=== PATIENT | male | born 1950 | race African-American/Black ===

== ENCOUNTER 2017-01-02 23:35 | Inpatient (IN) | payer OTHER, MEDICARE ==
[~2017-01-02 23:35] MED LIST: AMLO10 PO; ASPI1TAB69 PO; ATEN50TA PO; AZIT250T3 PO; BENT20TA PO; CANA100T PO; FLUC100T2 PO; IBUP-232 PO; JANU50TA8 PO; LACTCHW3 CHEW; PIOG45TA3 PO; PROS5TAB PO; TAMS5CAP PO
[2017-01-02 23:38] VITALS: BP 209/106; PULSE 92; RESP 20; TEMP 98.5; O2SAT 95
[2017-01-03] VITALS (14 sets, daily range): BP systolic 132–161; BP diastolic 83–93; PULSE 64–118; RESP 16–25; TEMP 97–101.6; O2SAT 91–99
[2017-01-03] MEDS ORDERED: SODIUM CHLORIDE 0.9% FLUSH 5 ML FLUSH IVF PRN (00:30)
--- NOTE | 2017-01-03 00:56 | RADRPT ---
EXAM DATE/TIME: 01/03/2017 00:34 [facility] COMPARISON: CHEST SINGLE AP, September 23, 2016, 10:16. INDICATIONS : Chest pain. MEDICAL HISTORY : Myocardial infarction. Hypertension. Hypercholesterolemia. TIA. GERD. SURGICAL HISTORY : Cardiac catheterization. Cystoscope. ENCOUNTER: Initial ACUITY: 1 day PAIN SCORE: 5/10 LOCATION: Bilateral chest FINDINGS: AP vertebra. There some increased density at the base especially on the left which may be related to compressive change versus atelectasis. The heart size is borderline enlarged. CONCLUSION: Expiratory chest x-ray with suspected borderline cardiomegaly. Renzo Rivera MD on January 03, 2017 at 0:54 Board Certified Radiologist. This report was verified electronically.
[2017-01-03 01:01] LABS: AUTOMATED NEUTROPHIL # 9.3 TH/MM3 (1.8-7.7); BASOPHIL % 0.2 % (0.0-2.0); EOSINOPHIL % 0.1 % (0.0-4.0); HEMATOCRIT 44.6 % (39.0-51.0); HEMO FLAGS DIFF FINAL; LYMPH % 7.1 % (9.0-44.0); LYMPHOCYTE # 0.7 TH/MM3 (1.0-4.8); MEAN CELL VOLUME 84.6 FL (80.0-100.0); MEAN CORPUSCULAR HEMOGLOBIN 27.9 PG (27.0-34.0); MONO % 1.9 % (0.0-8.0); NEUT % 90.7 % (16.0-70.0); PLATELET COUNT 148 TH/MM3 (150-450); RED BLOOD COUNT 5.27 MIL/MM3 (4.50-5.90); RED CELL DISTRIBUTION WIDTH 13.5 % (11.6-17.2); WHITE BLOOD COUNT 10.3 TH/MM3 (4.0-11.0)
[2017-01-03] MEDS ORDERED: N7030SS SQ (01:10)
[2017-01-03 01:14] LABS: BLOOD, URINE NEG (NEG); COMMENT (UR) CULT NOT INDICATED; CULTURE IF INDICATED CULT NOT INDICATED; GLUCOSE,URINE 1000 mg/dL (NEG); KETONE, URINE NEG (NEG); NITRITE,URINE NEG (NEG); SQUAMOUS EPITHELIAL CELL URINE <1 /hpf (0-5); URINE COLOR YELLOW (YELLW/STRAW)
[2017-01-03] MEDS ORDERED: SODIUM CHLOR 0.9% 1000 ML INJ 1,000 ML IV ONE (01:15)
[2017-01-03] MEDS ORDERED: HYDROmorphone HCL PF 1 MG/ML VIAL IV PUSH ONE (01:15)
[2017-01-03] MEDS ORDERED: ONDANSETRON HCL 4 MG/2 ML VIAL IV PUSH ONE (01:15)
[2017-01-03 01:23] LABS: ALKALINE PHOSPHATASE 120 U/L (45-117); TOTAL BILIRUBIN ADULT 2.4 MG/DL (0.2-1.0)
[2017-01-03 01:27] LABS: ALT (GPT) 254 U/L (12-78); ANION GAP 8 MEQ/L (5-15); AST (GOT) 342 U/L (15-37); BICARBONATE 29.1 MEQ/L (21.0-32.0); BLOOD UREA NITROGEN 14 MG/DL (7-18); CHLORIDE 104 MEQ/L (98-107); GLOMERULAR FILTRATION RATE 61 ML/MIN (>89); POTASSIUM 4.3 MEQ/L (3.5-5.1); SODIUM (NA) 141 MEQ/L (136-145)
[2017-01-03] MEDS ORDERED: IOHEXOL 350 MG/ML 10 ML VIAL (for RAD DIAG) IV ONE (02:09)
--- NOTE | 2017-01-03 02:22 | RADRPT ---
EXAM DATE/TIME: 01/03/2017 01:51 [facility] COMPARISON: CT ABDOMEN & PELVIS W CONTRAST, July 27, 2016, 16:03. INDICATIONS : Abdominal pain and chills IV CONTRAST: 95 cc Omnipaque 350 (iohexol) IV ORAL CONTRAST: No oral contrast ingested. RADIATION DOSE: 10.02 CTDIvol (mGy) MEDICAL HISTORY : Hypertension. Diabetes mellitus type 2. SURGICAL HISTORY : None. ENCOUNTER: Initial ACUITY: 1 day PAIN SCALE: 6/10 LOCATION: Bilateral abdomen TECHNIQUE: Volumetric scanning of the abdomen and pelvis was performed. Using automated exposure control and ad justment of the mA and/or kV according to patient size, radiation dose was kept as low as reasonably achievable to obtain optimal diagnostic quality images. FINDINGS: LOWER LUNGS: There is increased parenchymal density at the posterior lower lobes bilaterally. LIVER: There is diffuse fatty infiltration of the liver. SPLEEN: Normal size without lesion. PANCREAS: Within normal limits. KIDNEYS: There is a 5 mm nonobstructing left renal stone. No hydronephrosis is seen on either side. ADRENAL GLANDS: Within normal limits. VASCULAR: There is no aortic aneurysm. BOWEL/MESENTERY: There are colonic diverticula without definite inflammatory change. ABDOMINAL WALL: Within normal limits. RETROPERITONEUM: There is no lymphadenopathy. BLADDER: There is a mass at the bladder floor likely related to an enlarged prostate. REPRODUCTIVE: The prostate is enlarged and impresses upon the bladder floor. INGUINAL: There is no lymphadenopathy or hernia. MUSCULOSKELETAL: There is degenerative change in the spine. CONCLUSION: 1. Prostatic enlargement with suspected very prominent compression on the bladder floor creating a ma sslike area in the bladder floor. 2. Fatty infiltration liver. 3. Nonobstructing left renal stone. 4. Bibasilar areas of consolidation or atelectasis at the lung bases Renzo Rivera MD on January 03, 2017 at 2:14 Board Certified Radiologist. This report was verified electronically.
--- NOTE | 2017-01-03 03:43 | PD ---
HPI Chief Complaint: Abdominal Pain Time Seen by Provider: 01:03 Travel History International Travel<30 days: No Contact w/Intl Traveler<30days: No Traveled to known affect area: No History of Present Illness HPI 66-year-old male with history of hypertension, diabetes, previous TIAs, BPH, presents to the ER today because he has had 2 days history of chills, body aches , abdominal pains which she currently rates at a 10 out of 10. He does not know any exacerbating or alleviating factors. He denies any vomiting, diarrhea , chest pains, shortness of breath, or any other symptoms. He denies any previous symptoms similar to this. Modifying Factors: None Associated Signs & Symptoms: Chills, body aches, abdominal pain Risk Factors: None PFSH Past Medical History Hx Anticoagulant Therapy: Yes (ASA) Arthritis: No Asthma: No Autoimmune Disease: No Blood Disorders: No Anxiety: No Depression: No Heart Rhythm Problems: No Cancer: No Cardiac Catheterization: Yes (02/2010) Cardiovascular Problems: Yes (HTN) High Cholesterol: Yes Chemotherapy: No Chest Pain: Yes Congestive Heart Failure: No COPD: No Cerebrovascular Accident: Yes (TIA X3) Diabetes: Yes Patient Takes Glucophage: No Diminished Hearing: No Endocrine: Yes Gastrointestinal Disorders: Yes (HEMMRHOIDS, ACID REFLEX) GERD: Yes Glaucoma: No Genitourinary: Yes (ENLARGED PROSTATE) Headaches: No Hepatitis: No Hiatal Hernia: No Hypertension: Yes Immune Disorder: No Implanted Vascular Access Dvce: No Kidney Stones: No Musculoskeletal: Yes (NECK PROBLEMS) Neurologic: Yes (HX OF 3 MINI STROKES -- 2007) Psychiatric: No Reproductive: No Respiratory: Yes Migraines: No Myocardial Infarction: Yes (02/2010) Radiation Therapy: No Renal Failure: No Seizures: No Sleep Apnea: No Thyroid Disease: No Tetanus Vaccination: > 5 Years Influenza Vaccination: Yes Past Surgical History Abdominal Surgery: No AICD: No Appendectomy: No Arteriovenous Shunt: No Cardiac Surgery: Yes (HEART CATH STENT 2013) Cholecystectomy: No Ear Surgery: No Endocrine Surgery: No Eye Surgery: No Genitourinary Surgery: Yes (cystoscope) Gynecologic Surgery: No Insulin Pump: No Joint Replacement: No Neurologic Surgery: No Oral Surgery: Yes (DENTAL SURGERY IN S) Pacemaker: No Thoracic Surgery: No Other Surgery: Yes Social History Alcohol Use: No Tobacco Use: No Substance Use: No Allergies-Medications (Allergen,Severity, Reaction): Coded Allergies: Shellfish (Verified Allergy, Severe, Anaphylaxis, 01/03/17) Reported Meds & Prescriptions Reported Meds & Active Scripts Active Reported Novolin 70/30 Inj (Insulin Human Isoph/Insulin Regular) 1,000 Units/10 Ml Inj 5 Units SQ BID Flomax (Tamsulosin HCl) 0.4 Mg Cap 0.4 Mg PO HS Pioglitazone (Pioglitazone HCl) 45 Mg Tab 45 Mg PO DAILY Janumet (Sitagliptin-Metformin) 50-1,000 Mg Tab 1 Tab PO DAILY Ibuprofen 600 Mg Tab 600 Mg PO DAILY PRN Proscar (Finasteride) 5 Mg Tab 5 Mg PO HS Do not crush. Bentyl (Dicyclomine HCl) 20 Mg Tab 20 Mg PO TID Invokana (Canagliflozin) 100 Mg Tab 100 Mg PO DAILY Take before 1st meal of day. Atenolol 50 Mg Tab 50 Mg PO DAILY Aspirin 81 Mg Tabdr 81 Mg PO DAILY Norvasc (Amlodipine Besylate) 10 Mg Tab 10 Mg PO DAILY Review of Systems Except as stated in HPI: all other systems reviewed are Neg Physical Exam Narrative GENERAL: Well-nourished, well-developed elderly -[place] male patient in moderate distress. Awake and oriented 3. SKIN: Warm and dry. HEAD: Normocephalic. EYES: No scleral icterus. No injection or drainage. NECK: Supple, trachea midline. CARDIOVASCULAR: Regular rate and rhythm without murmurs, gallops, or rubs. RESPIRATORY: Breath sounds equal bilaterally. No accessory muscle use. GASTROINTESTINAL: Abdomen soft, diffuse abdominal tenderness without guarding or rebound, nondistended. MUSCULOSKELETAL: No cyanosis, or edema. BACK: Nontender without obvious deformity. No CVA tenderness. Data Data Last Documented VS Vital Signs Date Time Temp Pulse Resp B/P Pulse Ox O2 Delivery O2 Flow Rate FiO2 01/03/17 03:51 99.0 118 18 137/90 93 Room Air 01/03/17 01:11 2 Orders Complete Blood Count With Diff (01/03/17 00:18) Comprehensive Metabolic Panel (01/03/17 00:18) Lipase (01/03/17 00:18) Urinalysis - C+S If Indicated (01/03/17 00:18) Iv Access Insert/Monitor (01/03/17 00:18) Ecg Monitoring (01/03/17 00:18) Oximetry (01/03/17 00:18) Sodium Chloride 0.9% Flush (Ns Flush) (01/03/17 00:30) Electrocardiogram (01/03/17 00:18) Chest, Single Ap (01/03/17 00:18) Blood Culture (01/03/17 01:03) Influenzae A/B Antigen (01/03/17 01:03) Ct Abd/Pel W Iv Contrast(Rout) (01/03/17 01:03) Sodium Chlor 0.9% 1000 Ml Inj (Ns 1000 M (01/03/17 01:15) Hydromorphone Pf Inj (Dilaudid Pf Inj) (01/03/17 01:15) Ondansetron Inj (Zofran Inj) (01/03/17 01:15) Iohexol 350 Inj (Omnipaque 350 Inj) (01/03/17 02:09) Us Abdomen Gallbladder (01/03/17 02:28) B-Type Natriuretic Peptide (01/03/17 04:33) Ceftriaxone Inj (Rocephin Inj) (01/03/17 04:34) Azithromycin Inj (Zithromax Inj) (01/03/17 04:34) Labs Laboratory Tests Test 01/03/17 01/03/17 00:40 00:44 Urine Color YELLOW Urine Turbidity HAZY Urine pH 7.0 Urine Specific [place] 1.020 Urine Protein TRACE mg/dL Urine Glucose (UA) 1000 mg/dL Urine Ketones NEG mg/dL Urine Occult Blood NEG Urine Nitrite NEG Urine Bilirubin NEG Urine Urobilinogen 4.0 MG/DL Urine Leukocyte Esterase NEG Urine RBC 3 /hpf Urine WBC 2 /hpf Urine Squamous Epithelial <1 /hpf Cells Microscopic Urinalysis Comment CULT NOT INDICATED White Blood Count 10.3 TH/MM3 Red Blood Count 5.27 MIL/MM3 Hemoglobin 14.7 GM/DL Hematocrit 44.6 % Mean Corpuscular Volume 84.6 FL Mean Corpuscular Hemoglobin 27.9 PG Mean Corpuscular Hemoglobin 33.0 % Concent Red Cell Distribution Width 13.5 % Platelet Count 148 TH/MM3 Mean Platelet Volume 10.1 FL Neutrophils (%) (Auto) 90.7 % Lymphocytes (%) (Auto) 7.1 % Monocytes (%) (Auto) 1.9 % Eosinophils (%) (Auto) 0.1 % Basophils (%) (Auto) 0.2 % Neutrophils # (Auto) 9.3 TH/MM3 Lymphocytes # (Auto) 0.7 TH/MM3 Monocytes # (Auto) 0.2 TH/MM3 Eosinophils # (Auto) 0.0 TH/MM3 Basophils # (Auto) 0.0 TH/MM3 CBC Comment DIFF FINAL Differential Comment Sodium Level 141 MEQ/L Potassium Level 4.3 MEQ/L Chloride Level 104 MEQ/L Carbon Dioxide Level 29.1 MEQ/L Anion Gap 8 MEQ/L Blood Urea Nitrogen 14 MG/DL Creatinine 1.42 MG/DL Estimat Glomerular Filtration 61 ML/MIN Rate Random Glucose 173 MG/DL Calcium Level 8.8 MG/DL Total Bilirubin 2.4 MG/DL Aspartate Amino Transf 342 U/L (AST/SGOT) Alanine Aminotransferase 254 U/L (ALT/SGPT) Alkaline Phosphatase 120 U/L Total Protein 8.1 GM/DL Albumin 4.0 GM/DL Lipase 129 U/L MDM Medical Decision Making Medical Screen Exam Complete: Yes Emergency Medical Condition: Yes Medical Record Reviewed: Yes Interpretation(s) EKG shows sinus tachycardia at a rate of 115 bpm with no signs of ST changes. Laboratory Tests Test 01/03/17 01/03/17 00:40 00:44 Urine Turbidity HAZY (CLEAR) Urine Glucose (UA) 1000 mg/dL (NEG) Urine Urobilinogen 4.0 MG/DL (LESS THAN 2.0) Platelet Count 148 TH/MM3 (150-450) Neutrophils (%) (Auto) 90.7 % (16.0-70.0) Lymphocytes (%) (Auto) 7.1 % (9.0-44.0) Neutrophils # (Auto) 9.3 TH/MM3 (1.8-7.7) Lymphocytes # (Auto) 0.7 TH/MM3 (1.0-4.8) Creatinine 1.42 MG/DL (0.60-1.30) Estimat Glomerular Filtration 61 ML/MIN (>89) Rate Random Glucose 173 MG/DL (74-106) Total Bilirubin 2.4 MG/DL (0.2-1.0) Aspartate Amino Transf 342 U/L (15-37) (AST/SGOT) Alanine Aminotransferase 254 U/L (12-78) (ALT/SGPT) Alkaline Phosphatase 120 U/L (45-117) Last 24 hours Impressions Gall Bladder Ultrasound 01/03/17 0228 Signed Impressions: Service Date/Time: Tuesday, January 03, 2017 02:51 - CONCLUSION: Fatty liver. Renzo Rivera MD Abdomen/Pelvis CT 01/03/17 0103 Signed Impressions: Service Date/Time: Tuesday, January 03, 2017 01:51 - CONCLUSION: 1. Prostatic enlargement with suspected very prominent compression on the bladder floor creating a masslike area in the bladder floor. 2. Fatty infiltration liver. 3. Nonobstructing left renal stone. 4. Bibasilar areas of consolidation or atelectasis at the lung bases Renzo Rivera MD Chest X-Ray 01/03/17 0018 Signed Impressions: Service Date/Time: Tuesday, January 03, 2017 00:34 - CONCLUSION: Expiratory chest x-ray with suspected borderline cardiomegaly. Rezno Rivera MD Differential Diagnosis abdominal pain, chillsgastroenteritis versus influenza versus UTI versus acute intra-abdominal processes Narrative Course Patient was given IV fluids, pain medication nausea medication in the ER. Lab work ordered shows significant liver enzyme elevations. Influenza is negative. CAT scan ordered shows no signs of acute intra-abdominal processes. CAT scan did show some basilar infiltrates questionable for underlying early pneumonia versus bronchitis. Chest x-ray did not show any signs of acute lobar pneumonia. It is uncertain why his liver enzymes are elevated. However, ultrasound and CAT scan did not reveal any signs of acute liver issues or gallbladder issues. He does have some signs of fatty liver. Patient's saturations are low and considering pulmonary findings on CAT scan, there is concern for possible underlying pneumonia. IV antibiotics were initiated in the ER. Cultures have been drawn. My plan would be to admit the patient for further treatment. Case was discussed with Dr. Barlow for admission. Sepsis Criteria SIRS Criteria (2 or more): Temp > 100.9 or < 96.8, Heart rate over 90 Sepsis Criteria (SIRS+source): Infect source susp/known Criteria Outcome: Meets sepsis criteria Diagnosis Primary Impression: Elevated liver enzymes Additional Impression: Pneumonia Admitting Information Admitting Physician Requests: Admit Condition: Stable SoonBasia torre MD Jan 03, 2017 03:43
--- NOTE | 2017-01-03 03:47 | RADRPT ---
EXAM DATE/TIME: 01/03/2017 02:51 [facility] COMPARISON: CT ABDOMEN & PELVIS W CONTRAST, January 03, 2017, 1:51. INDICATIONS : Abdominal pain. MEDICAL HISTORY : Hypertension. Diabetic. SURGICAL HISTORY : Cardiac catheterization. ENCOUNTER: Initial ACUITY: 1 day PAIN SCORE: 7/10 LOCATION: Right upper quadrant MEASUREMENTS: LIVER: 15.3 cm length COMMON DUCT: 5 mm RIGHT KIDNEY: 11.4 x 5.1 x 5.7 cm FINDINGS: LIVER: The liver demonstrates diffuse increase in echogenicity. No focal hepatic masses seen. COMMON DUCT: No intraluminal mass or stone visualized. GALLBLADDER: Contains no stones, demonstrates no wall thickening or pericholecystic fluid. PANCREAS: The visualized portions are within normal limits. RIGHT KIDNEY: No evidence of hydronephrosis, stone, or mass. CONCLUSION: Fatty liver. Renzo Rivera MD on January 03, 2017 at 3:44 Board Certified Radiologist. This report was verified electronically.
[2017-01-03] MEDS ORDERED: AZITHROMYCIN INJ 500 MG in SODIUM CHLOR 0.9% 250 ML INJ 250 ML IV STA (04:34)
[2017-01-03] MEDS ORDERED: cefTRIAXone INJ 2,000 MG in SODIUM CHLORIDE 0.9% INJ 100 ML IV STA (04:34)
[2017-01-03] MEDS ORDERED: GLUCAGON 1 MG/ML VIAL OTHER PRN (06:45)
[2017-01-03] MEDS ORDERED: DEXTROSE 50% IN WATER 50 ML VIAL(D50) IV PUSH PRN (06:45)
[2017-01-03] MEDS ORDERED: SODIUM CHLORIDE 0.9% FLUSH 5 ML FLUSH FLUSH PRN (06:45)
[2017-01-03] MEDS ORDERED: NALOXONE HCL 0.4 MG/ML AMP IV PRN (06:45)
[2017-01-03] MEDS: CIPROFLOXACIN 400 MG PREMIX 200 ML IV SCH ×2 (07:37→19:54)
[2017-01-03] MEDS: INSULIN ASPART SUPPLEMENTAL SCALE SQ SCH ×4 (07:38→20:01)
[2017-01-03] MEDS: SODIUM CHLORIDE 0.9% FLUSH 5 ML FLUSH FLUSH SCH ×2 (07:38→19:54)
[2017-01-03] MEDS ORDERED: ENOXAPARIN SODIUM 40 MG/0.4 ML SYRINGE SQ SCH (08:00)
--- NOTE | 2017-01-03 08:17 | HHI.HP ---
cc: Renzo Camilo MD [facility] Service [facility] Primary Care Physician Renzo Camilo MD Admission Diagnosis pneumonia/elevated liver enzymes Diagnoses: (1) Pneumonia (2) Sepsis (3) Elevated liver enzymes (4) HTN (hypertension) (5) DM (diabetes mellitus) Chief Complaint: abdominal pain Travel History International Travel<30 Days: No Contact w/Intl Traveler <30 Da: No Traveled to Known Affected Are: No Sepsis Criteria SIRS Criteria (2 or more): Temp > 100.9 or < 96.8, Heart rate over 90 Sepsis Criteria (SIRS+source): Infect source susp/known Criteria Outcome: Meets sepsis criteria History of Present Illness The patient is a 66-year-old male who presented to the emergency department with a 2 day history of abdominal pain, body aches, and chills. These progressively got worse yesterday. He reports subjective fever, but no chills or night sweats. Denies cough or dyspnea. Abdominal pain is in the midepigastric region. No nausea or vomiting. No diarrhea or constipation. Review of Systems Constitutional: COMPLAINS OF: Fever (subjective), DENIES: Chills, Night Sweats Eyes: DENIES: Blurred vision, Vision loss Ears, nose, mouth, throat: DENIES: Hearing loss Respiratory: DENIES: Cough, Wheezing, Sputum production, Shortness of breath Cardiovascular: DENIES: Chest pain, Palpitations, Dyspnea on Exertion, Lower Extremity Edema Gastrointestinal: COMPLAINS OF: Abdominal pain, DENIES: Constipation, Diarrhea , Nausea, Vomiting Genitourinary: DENIES: Urinary frequency, Urinary incontinence, Urgency, Hematuria, Dysuria, Nocturia Musculoskeletal: DENIES: Joint pain, Muscle aches Integumentary: DENIES: Pruritus, Rash Hematologic/lymphatic: DENIES: Bruising Neurologic: DENIES: Headache Past Family Social History Past Medical History Hypertension History of TIA 3 GERD BPH CAD with history of [place] Diabetes mellitus Past Surgical History Cardiac catheterization with coronary artery stenting Cystoscopy Dental surgery 1970s Reported Medications Novolin 70/30 Inj (Insulin Human Isoph/Insulin Regular) 1,000 Units/10 Ml Inj 5 Units SQ BID Flomax (Tamsulosin HCl) 0.4 Mg Cap 0.4 Mg PO HS Pioglitazone (Pioglitazone HCl) 45 Mg Tab 45 Mg PO DAILY Janumet (Sitagliptin-Metformin) 50-1,000 Mg Tab 1 Tab PO DAILY Ibuprofen 600 Mg Tab 600 Mg PO DAILY PRN Proscar (Finasteride) 5 Mg Tab 5 Mg PO HS Do not crush. Bentyl (Dicyclomine HCl) 20 Mg Tab 20 Mg PO TID Invokana (Canagliflozin) 100 Mg Tab 100 Mg PO DAILY Take before 1st meal of day. Atenolol 50 Mg Tab 50 Mg PO DAILY Aspirin 81 Mg Tabdr 81 Mg PO DAILY Norvasc (Amlodipine Besylate) 10 Mg Tab 10 Mg PO DAILY Allergies: Coded Allergies: Shellfish (Verified Allergy, Severe, Anaphylaxis, 01/03/17) Family History Hypertension Social History Denies alcohol, tobacco, or illicit drug use. Physical Exam Vital Signs Vital Signs Date Time Temp Pulse Resp B/P Pulse Ox O2 Delivery O2 Flow Rate FiO2 01/03/17 07:32 101 19 141/87 95 Nasal Cannula 4 01/03/17 07:20 95 Nasal Cannula 4.00 01/03/17 06:41 95 Nasal Cannula 4.00 01/03/17 05:48 99.0 105 20 137/87 95 Nasal Cannula 4 01/03/17 03:51 99.0 118 18 137/90 93 Room Air 01/03/17 01:11 101.6 118 18 158/87 93 Nasal Cannula 2 01/03/17 01:02 93 Nasal Cannula 2 01/03/17 00:19 99.9 117 25 161/91 91 Nasal Cannula 2 01/03/17 00:19 22 01/02/17 23:38 98.5 92 20 209/106 95 Physical Exam GENERAL: Well-nourished, well-developed male in no acute distress. HEENT: Normocephalic, atraumatic. Pupils equal, round and reactive. Extraocular movements intact. No scleral icterus. No injection or drainage. Oropharynx is clear. Mucous membranes are moist. CARDIOVASCULAR: Regular rate and rhythm without murmurs, gallops, or rubs. RESPIRATORY: Clear to auscultation. No wheezes, rales, or rhonchi. Breathing is non-labored. GASTROINTESTINAL: Abdomen soft, nondistended. There is diffuse tenderness to palpation without rebound or guarding. EXTREMITIES: No lower extremity edema. No calf tenderness. PSYCH: Alert and oriented x 3. Laboratory Laboratory Tests Test 01/03/17 01/03/17 01/03/17 00:40 00:44 04:54 Urine Color YELLOW Urine Turbidity HAZY Urine pH 7.0 Urine Specific [place] 1.020 Urine Protein TRACE Urine Glucose (UA) 1000 Urine Ketones NEG Urine Occult Blood NEG Urine Nitrite NEG Urine Bilirubin NEG Urine Urobilinogen 4.0 Urine Leukocyte Esterase NEG Urine RBC 3 Urine WBC 2 Urine Squamous Epithelial <1 Cells Microscopic Urinalysis Comment CULT NOT INDICATED White Blood Count 10.3 Red Blood Count 5.27 Hemoglobin 14.7 Hematocrit 44.6 Mean Corpuscular Volume 84.6 Mean Corpuscular Hemoglobin 27.9 Mean Corpuscular Hemoglobin 33.0 Concent Red Cell Distribution Width 13.5 Platelet Count 148 Mean Platelet Volume 10.1 Neutrophils (%) (Auto) 90.7 Lymphocytes (%) (Auto) 7.1 Monocytes (%) (Auto) 1.9 Eosinophils (%) (Auto) 0.1 Basophils (%) (Auto) 0.2 Neutrophils # (Auto) 9.3 Lymphocytes # (Auto) 0.7 Monocytes # (Auto) 0.2 Eosinophils # (Auto) 0.0 Basophils # (Auto) 0.0 CBC Comment DIFF FINAL Differential Comment Sodium Level 141 Potassium Level 4.3 Chloride Level 104 Carbon Dioxide Level 29.1 Anion Gap 8 Blood Urea Nitrogen 14 Creatinine 1.42 Estimat Glomerular Filtration 61 Rate Random Glucose 173 Calcium Level 8.8 Total Bilirubin 2.4 Aspartate Amino Transf 342 (AST/SGOT) Alanine Aminotransferase 254 (ALT/SGPT) Alkaline Phosphatase 120 Total Protein 8.1 Albumin 4.0 Lipase 129 B-Type Natriuretic Peptide 19 Date/Time Procedure Status Source Growth 01/03/17 01:30 Aerobic Blood Culture Received Blood Peripheral Pending 01/03/17 01:30 Anaerobic Blood Culture Received Blood Peripheral Pending 01/03/17 01:21 Influenza Types A,B Antigen ([facility]) - Final Complete Nasal Washing NEGATIVE FOR FLU A AND B ANTIGEN.... Result Diagram: 01/03/17 0044 01/03/17 0044 Imaging Last Impressions Gall Bladder Ultrasound 01/03/17 0228 Signed Impressions: Service Date/Time: Tuesday, January 03, 2017 02:51 - CONCLUSION: Fatty liver. Renzo Rivera MD Abdomen/Pelvis CT 01/03/17 0103 Signed Impressions: Service Date/Time: Tuesday, January 03, 2017 01:51 - CONCLUSION: 1. Prostatic enlargement with suspected very prominent compression on the bladder floor creating a masslike area in the bladder floor. 2. Fatty infiltration liver. 3. Nonobstructing left renal stone. 4. Bibasilar areas of consolidation or atelectasis at the lung bases Renzo Rivera MD Chest X-Ray 01/03/17 0018 Signed Impressions: Service Date/Time: Tuesday, January 03, 2017 00:34 - CONCLUSION: Expiratory chest x-ray with suspected borderline cardiomegaly. Renzo Rivera MD Assessment and Plan Assessment and Plan 1. Abdominal pain: Uncertain etiology. Continue workup. Consult GI. 2. Elevated transaminases: Patient denies alcohol use. Ultrasound shows fatty liver. Monitor labs. Consult GI. 3. Sepsis secondary to pneumonia: Patient presented with fever, tachycardia. Suspected source is pneumonia. CT showed areas of consolidation versus atelectasis in the lung bases. 4. Hypertension: Continue atenolol, amlodipine. 5. Diabetes mellitus: Monitor Accu-Cheks and cover with sliding scale insulin. Continue 70/30 insulin. Hold Janumet secondary to renal insufficiency. Continue Invokana, pioglitazone. 6. BPH: Continue Flomax, Proscar. 7. DVT prophylaxis: Heparin. Delvis Ludwig MD Jan 03, 2017 08:17
[2017-01-03] MEDS: HEPARIN SODIUM - SQ 10,000 UNITS/ML VIAL SQ SCH ×2 (08:35→19:55)
[2017-01-03 08:49] LABS: ANION GAP 8 MEQ/L (5-15); AST (GOT) 360 U/L (15-37); BICARBONATE 27.1 MEQ/L (21.0-32.0); BLOOD UREA NITROGEN 15 MG/DL (7-18); CHLORIDE 107 MEQ/L (98-107); GLOMERULAR FILTRATION RATE 53 ML/MIN (>89); POTASSIUM 3.8 MEQ/L (3.5-5.1); SODIUM (NA) 142 MEQ/L (136-145)
[2017-01-03 08:59] LABS: ALKALINE PHOSPHATASE 135 U/L (45-117); ALT (GPT) 421 U/L (12-78); TOTAL BILIRUBIN ADULT 3.1 MG/DL (0.2-1.0)
[2017-01-03] MEDS ORDERED: CANAGLIFLOZIN 100 MG PO SCH (09:00)
[2017-01-03] MEDS: ATENOLOL 50 MG TAB PO SCH (09:27)
[2017-01-03] MEDS: DICYCLOMINE HCL 20 MG TAB PO SCH ×3 (09:27→16:52)
[2017-01-03] MEDS: ASPIRIN EC 81 MG TABEC PO SCH (09:27)
[2017-01-03] MEDS: INSULIN HUMAN NPH/R 70/30 1,000 UNITS/10 ML VIAL SQ SCH ×2 (09:27→20:08)
[2017-01-03] MEDS: PIOGLITAZONE HCL 45 MG TAB PO SCH (09:28)
--- NOTE | 2017-01-03 09:43 | PD.CONS ---
HPI History of Present Illness This is a 66 year old who reports that he came to the ER for evaluation after he woke up from a nap and was "shaking real bad." He felt warm, but is unsure if he had a fever. He denies any nausea/vomiting, but he did have abdominal pain. This was in his epigastric area and radiated down his entire abdomen and to his back. He describes this as a cramping pain. It seemed to be aggravated if he would sit up and therefore he tried lying on his back and this did seem to help some, but the pain came back. He denies any diarrhea, but reports mild constipation. He denies melena or hematochezia. He denies any suspicious food , sick contacts. He reports that he was on antibiotics back in October when he had a urinary catheter removed. He reports that he had this secondary to prostate issues. He denies any history of liver disease. He denies any ETOH use. He does not eat shellfish. He was recently started on a medication for 30 days, but he does not recall what this was. He last had a colonoscopy about a year ago, but cannot recall who did this. He denies any known history of liver disease in his family. PFSH Past Medical History Hypertension History of TIA's GERD BPH CAD with history of DC Diabetes mellitus Past Surgical History Cardiac catheterization with coronary artery stenting Cystoscopy Dental surgery 1970s Colonoscopy ~ 1 year ago Coded Allergies: Shellfish (Verified Allergy, Severe, Anaphylaxis, 01/03/17) Medications Allergies Coded Allergies Type Severity Reaction Last Updated Verified Shellfish Allergy Severe Anaphylaxis 01/03/17 Yes Active Scripts Medications Dose Route/Sig Days Date Category Dose Instructions Novolin 70/30 Inj (Insulin Human Isoph/Insulin Regular) 1,000 Units/10 Ml Inj 5 Units SQ BID 01/03/17 Reported Flomax (Tamsulosin HCl) 0.4 Mg Cap 0.4 Mg PO HS 09/23/16 Reported Pioglitazone (Pioglitazone HCl) 45 Mg Tab 45 Mg PO DAILY 09/23/16 Reported Janumet (Sitagliptin-Metformin) 50-1,000 Mg Tab 1 Tab PO DAILY 09/23/16 Reported Ibuprofen 600 Mg Tab 600 Mg PO DAILY PRN 09/23/16 Reported Proscar (Finasteride) 5 Mg Tab 5 Mg PO HS 09/23/16 Reported Do not crush. Bentyl (Dicyclomine HCl) 20 Mg Tab 20 Mg PO TID 09/23/16 Reported Invokana (Canagliflozin) 100 Mg Tab 100 Mg PO DAILY 09/23/16 Reported Take before 1st meal of day. Atenolol 50 Mg Tab 50 Mg PO DAILY 09/23/16 Reported Aspirin 81 Mg Tabdr 81 Mg PO DAILY 09/23/16 Reported Norvasc (Amlodipine Besylate) 10 Mg Tab 10 Mg PO DAILY 09/23/16 Reported Family History Denies any family hx of liver disease His oldest brother is from cancer, unclear etiology Mother passed, unclear if she had some type cancer. Social History Denies alcohol, tobacco, or illicit drug use. Review of Systems Constitutional: COMPLAINS OF: Diaphoretic episodes, Fatigue, Fever (? warm, unclear if he had fever), Chills Respiratory: COMPLAINS OF: Cough Cardiovascular: DENIES: Chest pain Gastrointestinal: COMPLAINS OF: Abdominal pain, Diarrhea, DENIES: Black stools , Bloody stools, Constipation, Nausea, Vomiting, Heartburn Musculoskeletal: COMPLAINS OF: Back pain Integumentary: DENIES: Rash Neurologic: DENIES: Headache Psychiatric: DENIES: Confusion GI Exam Vitals I&O Vital Signs Date Time Temp Pulse Resp B/P Pulse Ox O2 Delivery O2 Flow Rate FiO2 01/03/17 07:32 101 19 141/87 95 Nasal Cannula 4 01/03/17 07:20 95 Nasal Cannula 4.00 01/03/17 06:41 95 Nasal Cannula 4.00 01/03/17 05:48 99.0 105 20 137/87 95 Nasal Cannula 4 01/03/17 03:51 99.0 118 18 137/90 93 Room Air 01/03/17 01:11 101.6 118 18 158/87 93 Nasal Cannula 2 01/03/17 01:02 93 Nasal Cannula 2 01/03/17 00:19 99.9 117 25 161/91 91 Nasal Cannula 2 01/03/17 00:19 22 01/02/17 23:38 98.5 92 20 209/106 95 Imaging Last Impressions Gall Bladder Ultrasound 01/03/17 0228 Signed Impressions: Service Date/Time: Tuesday, January 03, 2017 02:51 - CONCLUSION: Fatty liver. Renzo Rivera MD Abdomen/Pelvis CT 01/03/17 0103 Signed Impressions: Service Date/Time: Tuesday, January 03, 2017 01:51 - CONCLUSION: 1. Prostatic enlargement with suspected very prominent compression on the bladder floor creating a masslike area in the bladder floor. 2. Fatty infiltration liver. 3. Nonobstructing left renal stone. 4. Bibasilar areas of consolidation or atelectasis at the lung bases Renzo Rivera MD Chest X-Ray 01/03/17 0018 Signed Impressions: Service Date/Time: Tuesday, January 03, 2017 00:34 - CONCLUSION: Expiratory chest x-ray with suspected borderline cardiomegaly. Renzo Rivera MD Laboratory Test 01/03/17 01/03/17 01/03/17 01/03/17 00:40 00:44 04:54 08:18 Urine Color YELLOW Urine Turbidity HAZY Urine pH 7.0 Urine Specific [place] 1.020 Urine Protein TRACE mg/dL Urine Glucose (UA) 1000 mg/dL Urine Ketones NEG mg/dL Urine Occult Blood NEG Urine Nitrite NEG Urine Bilirubin NEG Urine Urobilinogen 4.0 MG/DL Urine Leukocyte Esterase NEG Urine RBC 3 /hpf Urine WBC 2 /hpf Urine Squamous Epithelial <1 /hpf Cells Microscopic Urinalysis Comment CULT NOT INDICATED White Blood Count 10.3 TH/MM3 Red Blood Count 5.27 MIL/MM3 Hemoglobin 14.7 GM/DL Hematocrit 44.6 % Mean Corpuscular Volume 84.6 FL Mean Corpuscular Hemoglobin 27.9 PG Mean Corpuscular Hemoglobin 33.0 % Concent Red Cell Distribution Width 13.5 % Platelet Count 148 TH/MM3 Mean Platelet Volume 10.1 FL Neutrophils (%) (Auto) 90.7 % Lymphocytes (%) (Auto) 7.1 % Monocytes (%) (Auto) 1.9 % Eosinophils (%) (Auto) 0.1 % Basophils (%) (Auto) 0.2 % Neutrophils # (Auto) 9.3 TH/MM3 Lymphocytes # (Auto) 0.7 TH/MM3 Monocytes # (Auto) 0.2 TH/MM3 Eosinophils # (Auto) 0.0 TH/MM3 Basophils # (Auto) 0.0 TH/MM3 CBC Comment DIFF FINAL Differential Comment Sodium Level 141 MEQ/L 142 MEQ/L Potassium Level 4.3 MEQ/L 3.8 MEQ/L Chloride Level 104 MEQ/L 107 MEQ/L Carbon Dioxide Level 29.1 MEQ/L 27.1 MEQ/L Anion Gap 8 MEQ/L 8 MEQ/L Blood Urea Nitrogen 14 MG/DL 15 MG/DL Creatinine 1.42 MG/DL 1.59 MG/DL Estimat Glomerular Filtration 61 ML/MIN 53 ML/MIN Rate Random Glucose 173 MG/DL 242 MG/DL Calcium Level 8.8 MG/DL 8.0 MG/DL Total Bilirubin 2.4 MG/DL 3.1 MG/DL Aspartate Amino Transf 342 U/L 360 U/L (AST/SGOT) Alanine Aminotransferase 254 U/L 421 U/L (ALT/SGPT) Alkaline Phosphatase 120 U/L 135 U/L Total Protein 8.1 GM/DL 7.1 GM/DL Albumin 4.0 GM/DL 3.2 GM/DL Lipase 129 U/L B-Type Natriuretic Peptide 19 PG/ML Lactic Acid Level 2.2 mmol/L Date/Time Procedure Status Source Growth 01/03/17 01:30 Aerobic Blood Culture Received Blood Peripheral Pending 01/03/17 01:30 Anaerobic Blood Culture Received Blood Peripheral Pending 01/03/17 01:21 Influenza Types A,B Antigen (WOLF) - Final Complete Nasal Washing NEGATIVE FOR FLU A AND B ANTIGEN.... Physical Examination HEENT: Pupils round and reactive to light; normocephalic; atraumatic; no jaundice. Throat is clear. NECK: Neck is supple, no JVD, no lymphadenopathy. CHEST: CTA CARDIAC: RRR ABDOMEN: Soft, nondistended, mild diffuse tenderness; no hepatosplenomegaly; bowel sounds are present in all four quadrants. EXTREMITIES: No clubbing, cyanosis, or edema. SKIN: Normal; no rash; no jaundice. [employer]: No focal deficits; alert and oriented times three. Assessment and Plan Plan ASSESSMENT: - Abdominal pain. Came in for chills, malaise, diffuse abdominal cramping from his epigastric area to his entire abdomen/back. Denies suspicious food, sick contacts. Unclear if he was recently on abx. Abdomen/Pelvis CT ( 01/03/17)---> 1. Prostatic enlargement with suspected very prominent compression on the bladder floor creating a masslike area in the bladder floor. 2. Fatty infiltration liver. 3. Nonobstructing left renal stone. 4. Bibasilar areas of consolidation or atelectasis at the lung bases. Gall Bladder Ultrasound (01/03/17)---> Fatty liver. WBC normal 10.3. Lipase 129. LFTs elevated with T. Bili 3.1, AST 360, ALT 421, Alk Phosph 135. These were normal in September of 2016. Of note, he does take dicyclomine at home. He last had a colonoscopy 1 year ago, cannot state who did this. Now on Cipro. - Elevated LFTs. CT/US as above, fatty liver. Lipase normal. LFTs elevated with T. Bili 3.1, AST 360, ALT 421, Alk Phosph 135. These were normal in September of 2016. Will ask lab to fractionate bilirubin and order liver workup. - SERGEI with abnormal imaging of his bladder. CT with Prostatic enlargement with suspected very prominent compression on the bladder floor creating a masslike area in the bladder floor. He has a hx of BPH with urinary retention, requiring martínez catheter, pathology negative. He reports that he had the catheter removed in October. Creat 1.42 - Questionable PNA. S/P dose of azithromycin/ceftriaxone. Now on Cipro. - HTN, DM, Hx TIA, CAD. Per primary PLAN: - DENICE - Hepatitis profile - AFP level - Ferritin, Iron saturation - Alpha 1 antitrypsin, Ceruloplasmin - MELIZA, AMA, ASMA - Will ask lab to fractionate the bilirubin. If this is more direct, then we will consider further imaging with MRCP - PPI - Dicyclomine - Avoid hepatotoxic meds - CBC, CMP in am - Further recommendations to follow after patient is seen by Fallon Black Jan 03, 2017 09:43
[2017-01-03 10:05] LABS: FERRITIN 477 NG/ML (26-388); TRANSFERRIN IRON PROFILE 196 MG/DL (200-360)
[2017-01-03 10:13] LABS: ACETAMINOPHEN LESS THAN 2.0 MCG/ML (10.0-30.0)
[2017-01-03] MEDS: PANTOPRAZOLE SODIUM 40 MG VIAL IV PUSH SCH (11:25)
[2017-01-03] MEDS: TAMSULOSIN HCL 0.4 MG CAP PO SCH (19:54)
[2017-01-03] MEDS: FINASTERIDE 5 MG TAB PO SCH (19:54)
--- NOTE | 2017-01-03 21:10 | EKG ---
Date Performed: 01/03/2017 Time Performed: 00:31:53 PTAGE: 66 years EKG: SINUS TACHYCARDIA CONSIDER INFERIOR ND- AGE UNDETERMINATE POOR R-WAVE PROGRESSION. ABNORMAL ECG PREVIOUS TRACING : 09/23/2016 10.26 DOCTOR: Arjun Cutler Interpretating Date/Time 01/03/2017 21:09:25
[2017-01-04] VITALS (8 sets, daily range): BP systolic 117–136; BP diastolic 65–86; PULSE 54–80; RESP 16–18; TEMP 97.9–99.1; O2SAT 93–97
[2017-01-04] MEDS: INSULIN ASPART SUPPLEMENTAL SCALE SQ SCH ×4 (06:12→20:50)
[2017-01-04 07:09] LABS: BASOPHIL % 0.2 % (0.0-2.0); EOSINOPHIL # 0.1 TH/MM3 (0-0.4); EOSINOPHIL % 0.9 % (0.0-4.0); HEMATOCRIT 39.8 % (39.0-51.0); HEMO FLAGS DIFF FINAL; LYMPH % 14.1 % (9.0-44.0); LYMPHOCYTE # 1.8 TH/MM3 (1.0-4.8); MEAN CELL VOLUME 85.1 FL (80.0-100.0); MEAN CORPUSCULAR HEMOGLOBIN 27.3 PG (27.0-34.0); MEAN CORPUSCULAR HGB CONC 32.1 % (32.0-36.0); MONO % 12.2 % (0.0-8.0); NEUT % 72.6 % (16.0-70.0); PLATELET COUNT 148 TH/MM3 (150-450); RED BLOOD COUNT 4.68 MIL/MM3 (4.50-5.90); RED CELL DISTRIBUTION WIDTH 13.1 % (11.6-17.2); WHITE BLOOD COUNT 12.5 TH/MM3 (4.0-11.0)
[2017-01-04 07:28] LABS: ALKALINE PHOSPHATASE 130 U/L (45-117); ALT (GPT) 337 U/L (12-78); ANION GAP 9 MEQ/L (5-15); AST (GOT) 167 U/L (15-37); BICARBONATE 24.6 MEQ/L (21.0-32.0); BLOOD UREA NITROGEN 13 MG/DL (7-18); CHLORIDE 110 MEQ/L (98-107); GLOMERULAR FILTRATION RATE 64 ML/MIN (>89); POTASSIUM 3.7 MEQ/L (3.5-5.1); SODIUM (NA) 144 MEQ/L (136-145)
[2017-01-04] MEDS: CIPROFLOXACIN 400 MG PREMIX 200 ML IV SCH (09:10)
[2017-01-04] MEDS: ASPIRIN EC 81 MG TABEC PO SCH (09:11)
[2017-01-04] MEDS: ATENOLOL 50 MG TAB PO SCH (09:11)
[2017-01-04] MEDS: DICYCLOMINE HCL 20 MG TAB PO SCH ×3 (09:11→16:37)
[2017-01-04] MEDS: INSULIN HUMAN NPH/R 70/30 1,000 UNITS/10 ML VIAL SQ SCH ×2 (09:12→20:36)
[2017-01-04] MEDS: SODIUM CHLORIDE 0.9% FLUSH 5 ML FLUSH FLUSH SCH ×2 (09:12→20:37)
[2017-01-04] MEDS: HEPARIN SODIUM - SQ 10,000 UNITS/ML VIAL SQ SCH ×2 (09:12→20:36)
[2017-01-04] MEDS: PIOGLITAZONE HCL 45 MG TAB PO SCH (09:17)
[2017-01-04] MEDS: PANTOPRAZOLE SODIUM 40 MG VIAL IV PUSH SCH (09:17)
--- NOTE | 2017-01-04 10:46 | HHI.PR ---
Subjective Remarks Sepsis, abdominal pain, bacteremia. The patient states that he feels better today. Abdominal pain has improved. No chest pain. Does report some back discomfort, which was present prior to admission. Objective Vitals Vital Signs Date Time Temp Pulse Resp B/P Pulse Ox O2 Delivery O2 Flow Rate FiO2 01/04/17 09:14 95 01/04/17 08:00 97.9 76 18 136/86 95 01/04/17 04:00 98.1 63 16 117/65 95 01/04/17 00:00 99.1 80 17 133/80 94 01/03/17 20:00 99.0 81 16 132/83 93 01/03/17 18:08 69 01/03/17 17:23 97.0 70 17 147/92 98 01/03/17 15:55 66 18 152/89 98 Nasal Cannula 2 01/03/17 13:11 64 18 147/93 99 Nasal Cannula 2 01/03/17 11:10 76 18 137/92 99 Nasal Cannula 4 I/O 01/03/17 01/03/17 01/03/17 01/04/17 01/04/17 01/04/17 07:00 15:00 23:00 07:00 15:00 23:00 Intake Total 240 ml 240 ml Output Total 800 ml 675 ml 400 ml Balance -800 ml -435 ml -160 ml Intake Oral 240 ml 240 ml Output Urine Total 800 ml 675 ml 400 ml # Voids 2 2 # Bowel Movements 0 0 Result Diagram: 01/04/17 0619 01/04/17 0619 Imaging Last Impressions Gall Bladder Ultrasound 01/03/17 0228 Signed Impressions: Service Date/Time: Tuesday, January 03, 2017 02:51 - CONCLUSION: Fatty liver. Renzo Rivera MD Abdomen/Pelvis CT 01/03/17 0103 Signed Impressions: Service Date/Time: Tuesday, January 03, 2017 01:51 - CONCLUSION: 1. Prostatic enlargement with suspected very prominent compression on the bladder floor creating a masslike area in the bladder floor. 2. Fatty infiltration liver. 3. Nonobstructing left renal stone. 4. Bibasilar areas of consolidation or atelectasis at the lung bases Renzo Rivera MD Chest X-Ray 01/03/17 0018 Signed Impressions: Service Date/Time: Tuesday, January 03, 2017 00:34 - CONCLUSION: Expiratory chest x-ray with suspected borderline cardiomegaly. Renzo Rivera MD Objective Remarks General: No acute distress. Heart: Regular rate and rhythm. No murmur. Lungs: Clear to auscultation bilaterally. No wheezes, rales, or rhonchi. Breathing is nonlabored. Abdomen: Soft, nontender, nondistended. Extremities: No lower extremity edema. Psych: Alert and oriented. Procedures None Urinary Catheter: No Vascular Central Line Catheter: No A/P Problem List: (1) Pneumonia ICD Code: J18.9 Status: Acute (2) Sepsis ICD Code: A41.9 Status: Acute (3) Elevated liver enzymes ICD Code: R74.8 Status: Acute (4) HTN (hypertension) ICD Code: I10 Status: Chronic (5) DM (diabetes mellitus) ICD Code: E11.9 Status: Chronic (6) Bacteremia ICD Code: R78.81 Status: Acute (7) Leukocytosis ICD Code: D72.829 Status: Acute Assessment and Plan 1. Abdominal pain: Uncertain etiology. Continue workup. Appreciate GI recommendations. 2. Elevated transaminases: Patient denies alcohol use. Ultrasound shows fatty liver. Monitor labs. Hepatitis panel is negative. LFTs are trending down. 3. Sepsis secondary to pneumonia: Patient presented with fever, tachycardia. Suspected source is pneumonia. CT showed areas of consolidation versus atelectasis in the lung bases. 4. Hypertension: Continue atenolol, amlodipine. 5. Diabetes mellitus: Monitor Accu-Cheks and cover with sliding scale insulin. Continue 70/30 insulin. Hold Janumet secondary to renal insufficiency. Continue Invokana, pioglitazone. 6. BPH: Continue Flomax, Proscar. 7. Bacteremia: Blood culture growing gram-negative parrish. Continue antibiotics. Consult infectious disease. 8. DVT prophylaxis: Heparin. Delvis Ludwig MD Jan 04, 2017 10:46
--- NOTE | 2017-01-04 13:50 | PD.CONS ---
History of Present Illness Service Infectious disease Consult Requested By Dr Ludwig Reason for Consult Evaluate patient with positive blood culture Primary Care Physician Renzo Camilo MD Diagnoses: History of Present Illness patient seen and examined. Records reviewed. Patient is a 66-year-old male presented to the hospital with an acute onset of abdominal pain. He was also having significant chills and had some fevers. After he had shaking chills, he started having some pain in his mid back. He denies any nausea or vomiting. Has not had any significant diarrhea. Patient states she is voiding okay. His back pain is still there but it has not gotten worse. Patient's history is significant for problem with urinary retention. He has had evaluation by urologist since last year, and actually had to hospitalization here for UTI. In August he had enterococcus in the urine culture. In September he was admitted and had Pseudomonas bacteremia. On both admissions it was felt that it was related to his tract. Patient has known enlarged prostate from previous imaging studies, which was felt to be one of the problem causing his urinary retention. Patient was being followed by the urologist, and apparently in October after follow-up, his Shankar catheter was removed. Patient states that he has been voiding without any problem. His next appointment is in February. On this admission, he has been febrile up to 101 on his first hospital day. His white count was initially 10, and went up to 12,000. His urinalysis was unremarkable. One blood culture has Klebsiella and Enterobacter. His LFTs are also abnormal. CT of the abdomen and pelvis did not show any evidence of hydronephrosis. He has the nonobstructing stone in the kidney. He also has an enlarged prostate causing some compression in the roof of the urinary bladder. Infectious disease consultation has been requested to evaluate the patient. Review of Systems Constitutional: COMPLAINS OF: Fever, Chills Eyes: DENIES: Eye pain Ears, nose, mouth, throat: DENIES: Nasal discharge, Oral lesions, Throat pain, Ear Pain, Sinus Pain, Toothache Respiratory: DENIES: Cough, Shortness of breath Cardiovascular: DENIES: Chest pain, Palpitations, Syncope Gastrointestinal: COMPLAINS OF: Abdominal pain, DENIES: Diarrhea, Nausea, Vomiting, Difficulty Swallowing Genitourinary: DENIES: Urgency, Dysuria, Penile Discharge, Testicular Swelling Musculoskeletal: DENIES: Joint pain, Muscle aches, Joint Swelling Integumentary: DENIES: Rash Hematologic/lymphatic: DENIES: Bruising Immunologic/allergic: DENIES: Urticaria Neurologic: DENIES: Headache, Localized weakness Psychiatric: DENIES: Anxiety, Hallucinations Past Family Social History Allergies: Coded Allergies: Shellfish (Verified Allergy, Severe, Anaphylaxis, 01/03/17) Past Medical History HTN DM Type 2 Urinary Obstruction and retention BPH Past Surgical History Cystoscopy Active Ordered Medications Norvasc Aspirin Tenormin Proscar Heparin Insulin Cipro Bentyl Protonix Actos Flomax Social History No Tobacco. No ETOH. No Illicit Drugs. Physical Exam Vital Signs Vital Signs Date Time Temp Pulse Resp B/P Pulse Ox O2 Delivery O2 Flow Rate FiO2 01/04/17 12:00 98.1 64 18 134/77 93 01/04/17 09:14 95 01/04/17 08:00 97.9 76 18 136/86 95 01/04/17 04:00 98.1 63 16 117/65 95 01/04/17 00:00 99.1 80 17 133/80 94 01/03/17 20:00 99.0 81 16 132/83 93 01/03/17 18:08 69 01/03/17 17:23 97.0 70 17 147/92 98 01/03/17 15:55 66 18 152/89 98 Nasal Cannula 2 Physical Exam GENERAL: This is a well-nourished, well-developed male, awake and alert, not toxic appearing, not in respiratory distress. SKIN: Warm and dry. No rash or ecchymoses HEAD: Atraumatic. Normocephalic. No temporal or scalp tenderness. EYES: [employer] conjunctivae, no petechia or hemorrhage. Pupils equal round and reactive. Extraocular motions intact.Has dirty sclera. No injection or drainage. ENT: Nose without bleeding, or purulent drainage. Moist oral mucosa. Throat without erythema, or exudate. Uvula midline. Airway patent. NECK: Trachea midline. No JVD or lymphadenopathy. Supple, nontender, no meningeal signs. CARDIOVASCULAR: Regular rate and rhythm without murmurs, gallops, or rubs. RESPIRATORY: Clear to auscultation. Breath sounds equal bilaterally. No wheezes , rales, or rhonchi. GASTROINTESTINAL: Abdomen soft, bowel sounds are present and normoactive, not distended, with mild tenderness in the epigastric region. He had some mild pressure-like sensation on palpation of the suprapubic area. No hepato- splenomegaly, or palpable masses. No guarding. No rebound MUSCULOSKELETAL: Extremities without clubbing, cyanosis, or edema. No joint tenderness, effusion, or edema noted. No calf tenderness. Negative Homans sign bilaterally. Warm and well-perfused. NEUROLOGICAL: Awake and alert. Cranial nerves II through XII intact. Motor and sensory grossly within normal limits. Five out of 5 muscle strength in all muscle groups. Normal speech. PSYCH: Normal affect, calm and cooperative LINE: PIV with no evidence of infection Laboratory Laboratory Tests Test 01/04/17 06:19 White Blood Count 12.5 Red Blood Count 4.68 Hemoglobin 12.8 Hematocrit 39.8 Mean Corpuscular Volume 85.1 Mean Corpuscular Hemoglobin 27.3 Mean Corpuscular Hemoglobin 32.1 Concent Red Cell Distribution Width 13.1 Platelet Count 148 Mean Platelet Volume 10.2 Neutrophils (%) (Auto) 72.6 Lymphocytes (%) (Auto) 14.1 Monocytes (%) (Auto) 12.2 Eosinophils (%) (Auto) 0.9 Basophils (%) (Auto) 0.2 Neutrophils # (Auto) 9.0 Lymphocytes # (Auto) 1.8 Monocytes # (Auto) 1.5 Eosinophils # (Auto) 0.1 Basophils # (Auto) 0.0 CBC Comment DIFF FINAL Differential Comment Sodium Level 144 Potassium Level 3.7 Chloride Level 110 Carbon Dioxide Level 24.6 Anion Gap 9 Blood Urea Nitrogen 13 Creatinine 1.36 Estimat Glomerular Filtration 64 Rate Random Glucose 95 Calcium Level 8.2 Total Bilirubin 5.0 Aspartate Amino Transf 167 (AST/SGOT) Alanine Aminotransferase 337 (ALT/SGPT) Alkaline Phosphatase 130 Total Protein 6.8 Albumin 3.2 Date/Time Procedure Status Source Growth 01/03/17 01:30 Aerobic Blood Culture - Preliminary Resulted Blood Peripheral NO GROWTH IN 1 DAY 01/03/17 01:30 Anaerobic Blood Culture - Preliminary Resulted Klebsiella Pneumoniae Enterobacter Species 01/03/17 01:21 Influenza Types A,B Antigen (WOLF) - Final Complete Nasal Washing NEGATIVE FOR FLU A AND B ANTIGEN.... Result Diagram: 01/04/1761801/04/1719 Imaging RADIOLOGY STUDIES/FILMS REVIEWED Gall Bladder Ultrasound 01/03/178 Signed Impressions: Service Date/Time: Tuesday, January 03, 2017 02:51 - CONCLUSION: Fatty liver. Renzo Rivera MD Abdomen/Pelvis CT 01/03/17 0103 Signed Impressions: Service Date/Time: Tuesday, January 03, 2017 01:51 - CONCLUSION: 1. Prostatic enlargement with suspected very prominent compression on the bladder floor creating a masslike area in the bladder floor. 2. Fatty infiltration liver. 3. Nonobstructing left renal stone. 4. Bibasilar areas of consolidation or atelectasis at the lung bases Renzo Rivera MD Chest X-Ray 01/03/17 0018 Signed Impressions: Service Date/Time: Tuesday, January 03, 2017 00:34 - CONCLUSION: Expiratory chest x-ray with suspected borderline cardiomegaly. Renzo iRvera MD Assessment and Plan Assessment and Plan IMPRESSION Klebsiella and Enterobacter bacteremia, source? - ?GI/biliary, ? - ?prostate - clinically no evidence of PNA, CT findings likely more of atelectasis than consolidation Previous problem with urinary retention Enlarged prostate Renal insufficiency Diabetes RECOMMENDATION Xray low thoracic upper lumbar spine to eval back pain IV Zosyn Bladder scan to eval retention Will ask urology to evaluate the markedly enlarged prostate, ?abscess Also on Cipro Follow C/S Monitor progress Repeat UA I will make further recommendations once work-up is completed I will follow along with you Thank you for this consultation Discussed Condition With Explained plan to the patient Sunita Thompson MD Jan 04, 2017 13:50
--- NOTE | 2017-01-04 13:55 | HHI.GIFU ---
Subjective Remarks Up in chair. Mild nausea last night, none today. No abdominal pain. No diarrhea. Objective Vitals I&O Vital Signs Date Time Temp Pulse Resp B/P Pulse Ox O2 Delivery O2 Flow Rate FiO2 01/04/17 12:00 98.1 64 18 134/77 93 01/04/17 09:14 95 01/04/17 08:00 97.9 76 18 136/86 95 01/04/17 04:00 98.1 63 16 117/65 95 01/04/17 00:00 99.1 80 17 133/80 94 01/03/17 20:00 99.0 81 16 132/83 93 01/03/17 18:08 69 01/03/17 17:23 97.0 70 17 147/92 98 01/03/17 15:55 66 18 152/89 98 Nasal Cannula 2 I/O 01/03/17 01/03/17 01/03/17 01/04/17 01/04/17 01/04/17 07:00 15:00 23:00 07:00 15:00 23:00 Intake Total 240 ml 240 ml 206 ml Output Total 800 ml 675 ml 400 ml Balance -800 ml -435 ml -160 ml 206 ml Intake Oral 240 ml 240 ml IV Total 206 ml Output Urine Total 800 ml 675 ml 400 ml # Voids 2 2 # Bowel Movements 0 0 Laboratory Laboratory Tests Test 01/04/17 06:19 White Blood Count 12.5 Red Blood Count 4.68 Hemoglobin 12.8 Hematocrit 39.8 Mean Corpuscular Volume 85.1 Mean Corpuscular Hemoglobin 27.3 Mean Corpuscular Hemoglobin 32.1 Concent Red Cell Distribution Width 13.1 Platelet Count 148 Mean Platelet Volume 10.2 Neutrophils (%) (Auto) 72.6 Lymphocytes (%) (Auto) 14.1 Monocytes (%) (Auto) 12.2 Eosinophils (%) (Auto) 0.9 Basophils (%) (Auto) 0.2 Neutrophils # (Auto) 9.0 Lymphocytes # (Auto) 1.8 Monocytes # (Auto) 1.5 Eosinophils # (Auto) 0.1 Basophils # (Auto) 0.0 CBC Comment DIFF FINAL Differential Comment Sodium Level 144 Potassium Level 3.7 Chloride Level 110 Carbon Dioxide Level 24.6 Anion Gap 9 Blood Urea Nitrogen 13 Creatinine 1.36 Estimat Glomerular Filtration 64 Rate Random Glucose 95 Calcium Level 8.2 Total Bilirubin 5.0 Aspartate Amino Transf 167 (AST/SGOT) Alanine Aminotransferase 337 (ALT/SGPT) Alkaline Phosphatase 130 Total Protein 6.8 Albumin 3.2 Date/Time Procedure Status Source Growth 01/03/17 01:30 Aerobic Blood Culture - Preliminary Resulted Blood Peripheral NO GROWTH IN 1 DAY 01/03/17 01:30 Anaerobic Blood Culture - Preliminary Resulted Klebsiella Pneumoniae Enterobacter Species 01/03/17 01:21 Influenza Types A,B Antigen (WOLF) - Final Complete Nasal Washing NEGATIVE FOR FLU A AND B ANTIGEN.... Imaging Last Impressions Gall Bladder Ultrasound 01/03/17227 Signed Impressions: Service Date/Time: Tuesday, January 03, 2017 02:51 - CONCLUSION: Fatty liver. Renzo Rivera MD Abdomen/Pelvis CT 01/03/17 010 Signed Impressions: Service Date/Time: Tuesday, January 03, 2017 01:51 - CONCLUSION: 1. Prostatic enlargement with suspected very prominent compression on the bladder floor creating a masslike area in the bladder floor. 2. Fatty infiltration liver. 3. Nonobstructing left renal stone. 4. Bibasilar areas of consolidation or atelectasis at the lung bases Renzo Rivera MD Chest X-Ray 01/03/17 0018 Signed Impressions: Service Date/Time: Tuesday, January 03, 2017 00:34 - CONCLUSION: Expiratory chest x-ray with suspected borderline cardiomegaly. Renzo Rivera MD Physical Exam HEENT: Normocephalic; atraumatic; no jaundice. Throat is clear. NECK: Neck is supple, no JVD, no lymphadenopathy. CHEST: CTA CARDIAC: RRR ABDOMEN: Soft, nondistended, nontender; no hepatosplenomegaly; bowel sounds are present in all four quadrants. EXTREMITIES: No clubbing, cyanosis, or edema. SKIN: Normal; no rash; no jaundice. WATER/WASTEWATER ENGINEER: No focal deficits; alert and oriented times three. Assessment and Plan Plan ASSESSMENT: - Abdominal pain. Came in for chills, malaise, diffuse abdominal cramping from his epigastric area to his entire abdomen/back. Denies suspicious food, sick contacts. Unclear if he was recently on abx. Abdomen/Pelvis CT ( 01/03/17)---> 1. Prostatic enlargement with suspected very prominent compression on the bladder floor creating a masslike area in the bladder floor. 2. Fatty infiltration liver. 3. Nonobstructing left renal stone. 4. Bibasilar areas of consolidation or atelectasis at the lung bases. Gall Bladder Ultrasound (01/03/17)---> Fatty liver. WBC normal 10.3. Lipase 129. on admission. LFTs remain elevated with T. Bili 5.0,, AST 167,, ALT 337, Alk Phosph 130. These were normal in September of 2016. He last had a colonoscopy 1 year ago, cannot state who did this. Now on Cipro. IMPROVED. - Elevated LFTs. CT/US as above, fatty liver. Lipase normal. LFTs elevated with T. Bili 5.0,, AST 167,, ALT 337, Alk Phosph 130. These were normal in September of 2016. AFP 1.7, Alpha 1 Antitrypsin 119, Ceruloplasmin pending, Hepatitis negative, MELIZA pending, AMA pending, ASMA pending, Celiac panel pending. Ferritin 477, Iron Saturation 5.1%. Bilirubin went up , transaminases improving. - SERGEI with abnormal imaging of his bladder. CT with Prostatic enlargement with suspected very prominent compression on the bladder floor creating a masslike area in the bladder floor. He has a hx of BPH with urinary retention, requiring martínez catheter, pathology negative. He reports that he had the catheter removed in October. Creat 1.36 - Questionable PNA. S/P dose of azithromycin/ceftriaxone. Cipro. - HTN, DM, Hx TIA, CAD. Per primary PLAN: - DENICE - PPI - Dicyclomine - Hepatitis profile - Await Alpha 1 antitrypsin, Ceruloplasmin - Await MELIZA, AMA, ASMA - Monitor LFTs - Avoid hepatotoxic meds - Supportive care - Further recommendations to follow based on the results of above - Pt seen and examined by Dr. García and this note is written on his behalf Fallon Hernandez Jan 04, 2017 13:55
[2017-01-04 15:05] LABS: BLOOD, URINE NEG (NEG); GLUCOSE,URINE 1000 mg/dL (NEG); KETONE, URINE 10 mg/dL (NEG); MUCUS URINE FEW /lpf (OCC); NITRITE,URINE NEG (NEG); PH, URINE 5.5 (5.0-8.5); SQUAMOUS EPITHELIAL CELL URINE 1 /hpf (0-5); TRANSITIONAL EPI CELLS, URINE <1 /hpf; URINE COLOR DARK-YELLOW (YELLW/STRAW)
[2017-01-04] MEDS: PIPERACIL-TAZO 3.375 GM PREMIX 50 ML IV SCH ×2 (15:52→20:36)
--- NOTE | 2017-01-04 17:05 | PD.CONS ---
HPI Service Urology Consult Requested By Reason for Consult Rule out prostatic abscess Primary Care Physician Renzo Camilo MD Diagnosis: (1) Pneumonia ICD Code: J18.9 (2) Sepsis ICD Code: A41.9 (3) Elevated liver enzymes ICD Code: R74.8 (4) HTN (hypertension) ICD Code: I10 (5) DM (diabetes mellitus) ICD Code: E11.9 (6) Bacteremia ICD Code: R78.81 (7) Leukocytosis ICD Code: D72.829 History of Present Illness A urology consult was placed to rule out the possibility of a prostatic abscess in this pleasant 66-year-old gentleman who was admitted with a 2 day history of generalized abdominal pain on the aches and chills. Patient has a long- standing history of BPH with associated PSA elevation and is status post a transrectal ultrasound with multiple needle biopsies of the prostate in 2013 which were negative for malignancy. Patient is being managed with finasteride 5 mg by mouth daily. A CT scan of the abdomen and pelvis was performed that demonstrated a markedly enlarged prostate with extension into the bladder base. The CT scan findings do not appear consistent with a prostatic abscess. There were no appreciable changes regarding the prostate in comparison to prior studies. Patient states that he has been voiding without any difficulty. He denies dysuria or hematuria. He denies perineal discomfort. He does admit to constipation over the past several days. A bladder scan was performed with a post void residual of approximately 150 cc. Last PSA reading was from July 2016 measuring 24.87. Urinalysis on admission was essentially negative. Review of Systems Constitutional: COMPLAINS OF: Fever, Chills Gastrointestinal: COMPLAINS OF: Abdominal pain, Nausea Genitourinary: DENIES: Urgency, Hematuria, Dysuria Except as stated in HPI: all other systems reviewed are Neg Past Family Social History Past Medical History BPH Diabetes mellitus Coronary artery disease Status post AL GERD Hypertension History of transient ischemic attacks Past Surgical History Status post cardiac stents Status post cystoscopy that confirmed obstructing BPH with median lobe enlargement Status post transrectal ultrasound with multiple needle biopsies of prostate Reported Medications Refer to EMR Allergies: Coded Allergies: Shellfish (Verified Allergy, Severe, Anaphylaxis, 01/03/17) Active Ordered Medications Refer to EMR Family History Hypertension Social History Denies tobacco, alcohol or illicit drug abuse Physical Exam Vital Signs Vital Signs Date Time Temp Pulse Resp B/P Pulse Ox O2 Delivery O2 Flow Rate FiO2 01/04/17 16:00 98.2 60 18 124/71 97 01/04/17 12:00 98.1 64 18 134/77 93 01/04/17 09:14 95 01/04/17 08:00 97.9 76 18 136/86 95 01/04/17 04:00 98.1 63 16 117/65 95 01/04/17 00:00 99.1 80 17 133/80 94 01/03/17 20:00 99.0 81 16 132/83 93 01/03/17 18:08 69 01/03/17 17:23 97.0 70 17 147/92 98 Physical Exam GENERAL: This is a well-nourished, well-developed patient, in no apparent distress. SKIN: No rashes, ecchymoses or lesions. Cool and dry. HEAD: Atraumatic. Normocephalic. No temporal or scalp tenderness. EYES: Pupils equal round and reactive. Extraocular motions intact. No scleral icterus. No injection or drainage. ENT: Nose without bleeding, purulent drainage or septal hematoma. Throat without erythema, tonsillar hypertrophy or exudate. Uvula midline. Airway patent. NECK: Trachea midline. No JVD or lymphadenopathy. Supple, nontender, no meningeal signs. GASTROINTESTINAL: Abdomen soft, non-tender, nondistended. No hepato-splenomegaly , or palpable masses. No guarding. GENITOURINARY: Normal phallus, testes descended, prostate approximate 40 g symmetrical and nontender to palpation. No areas of fluctuance. No palpable nodules. MUSCULOSKELETAL: Extremities without clubbing, cyanosis, or edema. No joint tenderness, effusion, or edema noted. No calf tenderness. Negative Homans sign bilaterally. NEUROLOGICAL: Awake and alert. Cranial nerves II through XII intact. Motor and sensory grossly within normal limits. Five out of 5 muscle strength in all muscle groups. Normal speech. Laboratory Laboratory Tests Test 01/04/17 01/04/17 06:19 14:35 White Blood Count 12.5 Red Blood Count 4.68 Hemoglobin 12.8 Hematocrit 39.8 Mean Corpuscular Volume 85.1 Mean Corpuscular Hemoglobin 27.3 Mean Corpuscular Hemoglobin 32.1 Concent Red Cell Distribution Width 13.1 Platelet Count 148 Mean Platelet Volume 10.2 Neutrophils (%) (Auto) 72.6 Lymphocytes (%) (Auto) 14.1 Monocytes (%) (Auto) 12.2 Eosinophils (%) (Auto) 0.9 Basophils (%) (Auto) 0.2 Neutrophils # (Auto) 9.0 Lymphocytes # (Auto) 1.8 Monocytes # (Auto) 1.5 Eosinophils # (Auto) 0.1 Basophils # (Auto) 0.0 CBC Comment DIFF FINAL Differential Comment Sodium Level 144 Potassium Level 3.7 Chloride Level 110 Carbon Dioxide Level 24.6 Anion Gap 9 Blood Urea Nitrogen 13 Creatinine 1.36 Estimat Glomerular Filtration 64 Rate Random Glucose 95 Calcium Level 8.2 Total Bilirubin 5.0 Aspartate Amino Transf 167 (AST/SGOT) Alanine Aminotransferase 337 (ALT/SGPT) Alkaline Phosphatase 130 Total Protein 6.8 Albumin 3.2 Urine Color DARK-YELLOW Urine Turbidity CLEAR Urine pH 5.5 Urine Specific [place] 1.035 Urine Protein TRACE Urine Glucose (UA) 1000 Urine Ketones 10 Urine Occult Blood NEG Urine Nitrite NEG Urine Bilirubin SMALL Urine Urobilinogen 4.0 Urine Leukocyte Esterase SMALL Urine RBC LESS THAN 1 Urine WBC 8 Urine WBC Clumps RARE Urine Squamous Epithelial 1 Cells Urine Transitional Epithelial <1 Cells Urine Mucus FEW Date/Time Procedure Status Source Growth 01/04/17 16:04 Aerobic Blood Culture Received Blood Peripheral Pending 01/04/17 16:04 Anaerobic Blood Culture Received Blood Peripheral Pending 01/03/17 01:30 Aerobic Blood Culture - Preliminary Resulted Blood Peripheral NO GROWTH IN 1 DAY 01/03/17 01:30 Anaerobic Blood Culture - Preliminary Resulted Klebsiella Pneumoniae Enterobacter Species 01/03/17 01:21 Influenza Types A,B Antigen (WOLF) - Final Complete Nasal Washing NEGATIVE FOR FLU A AND B ANTIGEN.... Result Diagram: 01/04/1719 01/04/[address] scan with findings as outlined above Assessment and Plan Assessment and Plan Urologic impression: Abnormal findings of the prostate on CT scan consistent with BPH with enlargement of the median lobe. Digital rectal exam not consistent with prostatitis or prostatic abscess. Recommendations: #1 patient advised to remain on the finasteride for his BPH #2 patient to keep follow up appointment with me in February as scheduled #3 no further intervention indicated at the present time. Taiwo Power MD Jan 04, 2017 17:05
[2017-01-04] MEDS: TAMSULOSIN HCL 0.4 MG CAP PO SCH (20:36)
[2017-01-04] MEDS: FINASTERIDE 5 MG TAB PO SCH (20:36)
[2017-01-04] MEDS: CIPROFLOXACIN 750 MG TAB PO SCH (20:36)
[2017-01-05] VITALS: BP 130/84; PULSE 53; RESP 16; TEMP 97.4; O2SAT 96
[2017-01-05 03:52] LABS: MITOCHONDRIAL ABS 24.9 U (())
[2017-01-05 04:00] VITALS: BP 154/85; PULSE 52; RESP 16; TEMP 98; O2SAT 95
[2017-01-05] MEDS: PIPERACIL-TAZO 3.375 GM PREMIX 50 ML IV SCH ×4 (04:01→21:30)
[2017-01-05] MEDS: INSULIN ASPART SUPPLEMENTAL SCALE SQ SCH ×4 (06:25→21:00)
[2017-01-05 06:58] LABS: AUTOMATED NEUTROPHIL # 6.5 TH/MM3 (1.8-7.7); BASOPHIL # 0.1 TH/MM3 (0-0.2); BASOPHIL % 0.6 % (0.0-2.0); EOSINOPHIL # 0.2 TH/MM3 (0-0.4); EOSINOPHIL % 1.6 % (0.0-4.0); HEMATOCRIT 38.9 % (39.0-51.0); HEMO FLAGS DIFF FINAL; LYMPH % 20.2 % (9.0-44.0); MEAN CELL VOLUME 84.9 FL (80.0-100.0); MEAN CORPUSCULAR HEMOGLOBIN 27.5 PG (27.0-34.0); MEAN CORPUSCULAR HGB CONC 32.4 % (32.0-36.0); MONO % 13.2 % (0.0-8.0); NEUT % 64.4 % (16.0-70.0); PLATELET COUNT 147 TH/MM3 (150-450); RED BLOOD COUNT 4.58 MIL/MM3 (4.50-5.90); RED CELL DISTRIBUTION WIDTH 13.3 % (11.6-17.2); WHITE BLOOD COUNT 10.1 TH/MM3 (4.0-11.0)
--- NOTE | 2017-01-05 07:53 | HHI.PR ---
Subjective Remarks Patient sleepy, says she has decreased appetite and feels tired. No fever or chills overnight. No n/v/d/c. Has productive cough. Objective Vitals Vital Signs Date Time Temp Pulse Resp B/P Pulse Ox O2 Delivery O2 Flow Rate FiO2 01/05/17 04:00 98.0 52 16 154/85 95 01/05/17 00:00 97.4 53 16 130/84 96 01/04/17 20:00 98.3 65 16 120/70 94 01/04/17 17:40 54 01/04/17 16:00 98.2 60 18 124/71 97 01/04/17 12:00 98.1 64 18 134/77 93 01/04/17 09:14 95 01/04/17 08:00 97.9 76 18 136/86 95 I/O 01/04/17 01/04/17 01/04/17 01/05/17 01/05/17 01/05/17 07:00 15:00 23:00 07:00 15:00 23:00 Intake Total 240 ml 206 ml 840 ml 240 ml Output Total 400 ml 900 ml 300 ml Balance -160 ml 206 ml -60 ml -60 ml Intake Oral 240 ml 840 ml 240 ml IV Total 206 ml Output Urine Total 400 ml 900 ml 300 ml # Voids 1 # Bowel Movements 0 0 0 Result Diagram: 01/05/1762201/04/1719 Imaging Last Impressions Gall Bladder Ultrasound 01/03/178 Signed Impressions: Service Date/Time: Tuesday, January 03, 2017 02:51 - CONCLUSION: Fatty liver. Renzo Rivera MD Abdomen/Pelvis CT 01/03/17 0103 Signed Impressions: Service Date/Time: Tuesday, January 03, 2017 01:51 - CONCLUSION: 1. Prostatic enlargement with suspected very prominent compression on the bladder floor creating a masslike area in the bladder floor. 2. Fatty infiltration liver. 3. Nonobstructing left renal stone. 4. Bibasilar areas of consolidation or atelectasis at the lung bases Renzo Rivera MD Chest X-Ray 01/03/17 0018 Signed Impressions: Service Date/Time: Tuesday, January 03, 2017 00:34 - CONCLUSION: Expiratory chest x-ray with suspected borderline cardiomegaly. Renzo Rivera MD Objective Remarks GENERAL: 66 yo male, well nourished, well developed patient, in not acute distress. SKIN: Warm and dry. HEAD: Atraumatic. Normocephalic. EYES: Pupils equal and round. No scleral icterus. No injection or drainage. ENT: No nasal bleeding or discharge. Mucous membranes pink and moist. NECK: Trachea midline. No JVD. CARDIOVASCULAR: Regular rate and rhythm. RESPIRATORY: No accessory muscle use. Clear to auscultation. Breath sounds equal bilaterally. GASTROINTESTINAL: Abdomen soft, non-tender, nondistended. Hepatic and splenic margins not palpable. MUSCULOSKELETAL: Extremities without clubbing, cyanosis, or edema. No obvious deformities. NEUROLOGICAL: Awake and alert. No obvious cranial nerve deficits. Motor grossly within normal limits. Five out of 5 muscle strength in the arms and legs. Normal speech. PSYCHIATRIC: Appropriate mood and affect; insight and judgment normal. Procedures None A/P Problem List: (1) Pneumonia ICD Code: J18.9 Status: Acute (2) Sepsis ICD Code: A41.9 Status: Acute (3) Elevated liver enzymes ICD Code: R74.8 Status: Acute (4) HTN (hypertension) ICD Code: I10 Status: Chronic (5) DM (diabetes mellitus) ICD Code: E11.9 Status: Chronic (6) Bacteremia ICD Code: R78.81 Status: Acute (7) Leukocytosis ICD Code: D72.829 Status: Acute Assessment and Plan Abdominal pain: Uncertain etiology. Continue workup. Appreciate GI recommendations. Elevated transaminases: Patient denies alcohol use. Ultrasound shows fatty liver. Monitor labs. Hepatitis panel is negative. LFTs are trending down. Poss acute 2/2 sepsis. Sepsis secondary to pneumonia/also bacteremia: Patient with fever, tachycardia on admission. Suspected source is pneumonia. CT showed areas of consolidation versus atelectasis in the lung bases. Bacteremia: Blood culture growing GNR Klebsiella pneumoniae and Enterobacter species. Repeat Blood cultures 01/04/17 NTD. Monitor unril neg Blood cx. Continue antibiotics. Infectious disease specialist consulted and following. Hypertension: Fairly controlled Continue atenolol, amlodipine. Monitor VS and adjust meds if need. Vasotec IV prn if high BP SERGEI. Continue IVF. Monitor Kidney indices. Avoid nephrotoxics. UA neg. Pt also has BPH. Diabetes mellitus type 2, controlled A1c 5.3 07/29. Monitor Accu-Cheks and cover with sliding scale insulin. Continue 70/30 insulin. Hold Janumet secondary to renal insufficiency. Continue Invokana, pioglitazone. BPH: Continue Flomax, Proscar. Follow up with Dr Power as OP. Has an appointment in February. DVT prophylaxis: Heparin. Discussed with patient, nurse Anastasiya Sellers MD Jan 05, 2017 07:52
[2017-01-05] MEDS: PANTOPRAZOLE SODIUM 40 MG VIAL IV PUSH SCH (07:55)
[2017-01-05] MEDS: SODIUM CHLORIDE 0.9% FLUSH 5 ML FLUSH FLUSH SCH ×2 (07:55→21:31)
[2017-01-05] MEDS: INSULIN HUMAN NPH/R 70/30 1,000 UNITS/10 ML VIAL SQ SCH ×2 (07:56→21:30)
[2017-01-05] MEDS: PIOGLITAZONE HCL 45 MG TAB PO SCH (07:56)
[2017-01-05] MEDS: ATENOLOL 50 MG TAB PO SCH (07:56)
[2017-01-05] MEDS: DICYCLOMINE HCL 20 MG TAB PO SCH ×3 (07:56→15:35)
[2017-01-05] MEDS: ASPIRIN EC 81 MG TABEC PO SCH (07:56)
[2017-01-05] MEDS: CIPROFLOXACIN 750 MG TAB PO SCH ×2 (07:56→21:30)
[2017-01-05] MEDS: HEPARIN SODIUM - SQ 10,000 UNITS/ML VIAL SQ SCH ×2 (07:58→21:31)
[2017-01-05 08:04] LABS: ALKALINE PHOSPHATASE 127 U/L (45-117); ALT (GPT) 262 U/L (12-78); ANION GAP 6 MEQ/L (5-15); AST (GOT) 85 U/L (15-37); BICARBONATE 25.5 MEQ/L (21.0-32.0); BLOOD UREA NITROGEN 15 MG/DL (7-18); CHLORIDE 109 MEQ/L (98-107); GLOMERULAR FILTRATION RATE 70 ML/MIN (>89); POTASSIUM 3.9 MEQ/L (3.5-5.1); SODIUM (NA) 140 MEQ/L (136-145); TOTAL BILIRUBIN ADULT 1.3 MG/DL (0.2-1.0)
[2017-01-05 08:10] VITALS: BP 135/72; PULSE 59; RESP 18; TEMP 98.1; O2SAT 97
[2017-01-05 08:53] VITALS: PULSE 53
[2017-01-05 12:10] VITALS: BP 143/86; PULSE 52; RESP 16; TEMP 97.6; O2SAT 99
--- NOTE | 2017-01-05 12:14 | HHI.GIFU ---
Subjective Remarks Pt OOB to bathroom. Reports one loose BM last night. Good appetite. Objective Vitals I&O Vital Signs Date Time Temp Pulse Resp B/P Pulse Ox O2 Delivery O2 Flow Rate FiO2 01/05/17 08:53 53 01/05/17 08:10 98.1 59 18 135/72 97 01/05/17 04:00 98.0 52 16 154/85 95 01/05/17 00:00 97.4 53 16 130/84 96 01/04/17 20:00 98.3 65 16 120/70 94 01/04/17 17:40 54 01/04/17 16:00 98.2 60 18 124/71 97 I/O 01/04/17 01/04/17 01/04/17 01/05/17 01/05/17 01/05/17 07:00 15:00 23:00 07:00 15:00 23:00 Intake Total 240 ml 206 ml 840 ml 240 ml Output Total 400 ml 900 ml 300 ml Balance -160 ml 206 ml -60 ml -60 ml Intake Oral 240 ml 840 ml 240 ml IV Total 206 ml Output Urine Total 400 ml 900 ml 300 ml # Voids 1 # Bowel Movements 0 0 0 Laboratory Laboratory Tests Test 01/04/17 01/05/17 01/05/17 14:35 06:23 10:43 Urine Color DARK-YELLOW Urine Turbidity CLEAR Urine pH 5.5 Urine Specific [place] 1.035 Urine Protein TRACE Urine Glucose (UA) 1000 Urine Ketones 10 Urine Occult Blood NEG Urine Nitrite NEG Urine Bilirubin SMALL Urine Urobilinogen 4.0 Urine Leukocyte Esterase SMALL Urine RBC LESS THAN 1 Urine WBC 8 Urine WBC Clumps RARE Urine Squamous Epithelial 1 Cells Urine Transitional Epithelial <1 Cells Urine Mucus FEW White Blood Count 10.1 Red Blood Count 4.58 Hemoglobin 12.6 Hematocrit 38.9 Mean Corpuscular Volume 84.9 Mean Corpuscular Hemoglobin 27.5 Mean Corpuscular Hemoglobin 32.4 Concent Red Cell Distribution Width 13.3 Platelet Count 147 Mean Platelet Volume 10.1 Neutrophils (%) (Auto) 64.4 Lymphocytes (%) (Auto) 20.2 Monocytes (%) (Auto) 13.2 Eosinophils (%) (Auto) 1.6 Basophils (%) (Auto) 0.6 Neutrophils # (Auto) 6.5 Lymphocytes # (Auto) 2.0 Monocytes # (Auto) 1.3 Eosinophils # (Auto) 0.2 Basophils # (Auto) 0.1 CBC Comment DIFF FINAL Differential Comment Sodium Level 140 Potassium Level 3.9 Chloride Level 109 Carbon Dioxide Level 25.5 Anion Gap 6 Blood Urea Nitrogen 15 Creatinine 1.26 Estimat Glomerular Filtration 70 Rate Random Glucose 129 Calcium Level 8.6 Total Bilirubin 1.3 Aspartate Amino Transf 85 (AST/SGOT) Alanine Aminotransferase 262 (ALT/SGPT) Alkaline Phosphatase 127 Total Protein 6.9 Albumin 3.1 Lactic Acid Level 0.8 Date/Time Procedure Status Source Growth 01/04/17 16:04 Aerobic Blood Culture - Preliminary Resulted Blood Peripheral NO GROWTH IN 1 DAY 01/04/17 16:04 Anaerobic Blood Culture - Final Resulted Blood Peripheral QNS - SEE AEROBE REPORT 01/03/17 01:21 Influenza Types A,B Antigen (WOLF) - Final Complete Nasal Washing NEGATIVE FOR FLU A AND B ANTIGEN.... Imaging Last Impressions Gall Bladder Ultrasound 01/03/17227 Signed Impressions: Service Date/Time: Tuesday, January 03, 2017 02:51 - CONCLUSION: Fatty liver. Renzo Rivera MD Abdomen/Pelvis CT 01/03/173 Signed Impressions: Service Date/Time: Tuesday, January 03, 2017 01:51 - CONCLUSION: 1. Prostatic enlargement with suspected very prominent compression on the bladder floor creating a masslike area in the bladder floor. 2. Fatty infiltration liver. 3. Nonobstructing left renal stone. 4. Bibasilar areas of consolidation or atelectasis at the lung bases Renzo Rivera MD Chest X-Ray 01/03/17 0018 Signed Impressions: Service Date/Time: Tuesday, January 03, 2017 00:34 - CONCLUSION: Expiratory chest x-ray with suspected borderline cardiomegaly. Renzo Rivera MD Physical Exam HEENT: Normocephalic; atraumatic; no jaundice. CHEST: CTA CARDIAC: RRR ABDOMEN: Soft, nondistended, nontender; no hepatosplenomegaly; bowel sounds are present in all four quadrants. EXTREMITIES: No clubbing, cyanosis, or edema. SKIN: Normal; no rash; no jaundice. LEATHER GOODS MAKER: No focal deficits; alert and oriented times three. Assessment and Plan Plan ASSESSMENT: - Abdominal pain improving. Came in for chills, malaise, diffuse abdominal cramping from his epigastric area to his entire abdomen/back. Denies suspicious food, sick contacts. Unclear if he was recently on abx. Abdomen/Pelvis CT ( 01/03/17)---> 1. Prostatic enlargement with suspected very prominent compression on the bladder floor creating a masslike area in the bladder floor. 2. Fatty infiltration liver. 3. Nonobstructing left renal stone. 4. Bibasilar areas of consolidation or atelectasis at the lung bases. Gall Bladder Ultrasound (01/03/17)---> Fatty liver. WBC normal 10.1. Lipase 129. on admission. LFTs trending down with T. Bili 1.3,, AST 85,, ALT 262, Alk Phosph 127. These were normal in September of 2016. He last had a colonoscopy 1 year ago, cannot state who did this. Now on Cipro. IMPROVED. - Elevated LFTs. CT/US as above, fatty liver. Lipase normal. LFTs trending down with T. Bili 1.3,, AST 85,, ALT 262, Alk Phosph 127. These were normal in September of 2016. AFP 1.7, Alpha 1 Antitrypsin 119, Ceruloplasmin pending, Hepatitis negative, MELIZA neg, AMA nonspecifically elevated 24.9, ASMA neg, alpha 1 antitrypsin normal Celiac panel neg. Ferritin 477, Iron Saturation 5.1%. - SERGEI with abnormal imaging of his bladder. CT with Prostatic enlargement with suspected very prominent compression on the bladder floor creating a masslike area in the bladder floor. He has a hx of BPH with urinary retention, requiring martínez catheter, pathology negative. He reports that he had the catheter removed in October. Creat 1.26 - Questionable PNA. S/P dose of azithromycin/ceftriaxone. Cipro. - HTN, DM, Hx TIA, CAD. Per primary PLAN: - DENICE - PPI - Dicyclomine - Await Ceruloplasmin - Monitor LFTs - Avoid hepatotoxic meds - Supportive care - If LFTs remain persistently elevated or worsen, consider liver biopsy - Further recommendations to follow based on the results of above - Pt seen and examined by Dr. García and this note is written on his behalf Fallon Hernandez Jan 05, 2017 12:14
--- NOTE | 2017-01-05 13:21 | HHI.IDPN ---
Subjective Subjective Remarks Notes reviewed No fever Urology notes appreciated No new (+) BC LFTs improving NO new complaints Repeat UA now with pyuria Antibiotics Zosyn Cipro Lines PIV Past Medical History HTN DM Type 2 Urinary Obstruction and retention BPH Past Surgical History Cystoscopy Allergies: Coded Allergies: Shellfish (Verified Allergy, Severe, Anaphylaxis, 01/03/17) Objective . Vital Signs Date Time Temp Pulse Resp B/P Pulse Ox O2 Delivery O2 Flow Rate FiO2 01/05/17 08:53 53 01/05/17 08:10 98.1 59 18 135/72 97 01/05/17 04:00 98.0 52 16 154/85 95 01/05/17 00:00 97.4 53 16 130/84 96 01/04/17 20:00 98.3 65 16 120/70 94 01/04/17 17:40 54 01/04/17 16:00 98.2 60 18 124/71 97 01/04/17 01/04/17 01/05/17 15:00 23:00 07:00 Intake Total 206 ml 840 ml 240 ml Output Total 900 ml 300 ml Balance 206 ml -60 ml -60 ml Intake Oral 840 ml 240 ml IV Total 206 ml Output Urine Total 900 ml 300 ml # Voids 1 # Bowel Movements 0 0 . Laboratory Tests Test 01/04/17 01/05/17 06:19 06:23 White Blood Count 12.5 TH/MM3 10.1 TH/MM3 Red Blood Count 4.68 MIL/MM3 4.58 MIL/MM3 Hemoglobin 12.8 GM/DL 12.6 GM/DL Hematocrit 39.8 % 38.9 % Mean Corpuscular Volume 85.1 FL 84.9 FL Mean Corpuscular Hemoglobin 27.3 PG 27.5 PG Mean Corpuscular Hemoglobin 32.1 % 32.4 % Concent Red Cell Distribution Width 13.1 % 13.3 % Platelet Count 148 TH/MM3 147 TH/MM3 Mean Platelet Volume 10.2 FL 10.1 FL Neutrophils (%) (Auto) 72.6 % 64.4 % Lymphocytes (%) (Auto) 14.1 % 20.2 % Monocytes (%) (Auto) 12.2 % 13.2 % Eosinophils (%) (Auto) 0.9 % 1.6 % Basophils (%) (Auto) 0.2 % 0.6 % Neutrophils # (Auto) 9.0 TH/MM3 6.5 TH/MM3 Lymphocytes # (Auto) 1.8 TH/MM3 2.0 TH/MM3 Monocytes # (Auto) 1.5 TH/MM3 1.3 TH/MM3 Eosinophils # (Auto) 0.1 TH/MM3 0.2 TH/MM3 Basophils # (Auto) 0.0 TH/MM3 0.1 TH/MM3 CBC Comment DIFF FINAL DIFF FINAL Differential Comment Laboratory Tests Test 01/04/17 01/05/17 01/05/17 06:19 06:23 10:43 Sodium Level 144 MEQ/L 140 MEQ/L Potassium Level 3.7 MEQ/L 3.9 MEQ/L Chloride Level 110 MEQ/L 109 MEQ/L Carbon Dioxide Level 24.6 MEQ/L 25.5 MEQ/L Anion Gap 9 MEQ/L 6 MEQ/L Blood Urea Nitrogen 13 MG/DL 15 MG/DL Creatinine 1.36 MG/DL 1.26 MG/DL Estimat Glomerular Filtration 64 ML/MIN 70 ML/MIN Rate Random Glucose 95 MG/DL 129 MG/DL Calcium Level 8.2 MG/DL 8.6 MG/DL Total Bilirubin 5.0 MG/DL 1.3 MG/DL Aspartate Amino Transf 167 U/L 85 U/L (AST/SGOT) Alanine Aminotransferase 337 U/L 262 U/L (ALT/SGPT) Alkaline Phosphatase 130 U/L 127 U/L Total Protein 6.8 GM/DL 6.9 GM/DL Albumin 3.2 GM/DL 3.1 GM/DL Lactic Acid Level 0.8 mmol/L Microbiology Date/Time Procedure Status Source Growth 01/03/17 01:20 Aerobic Blood Culture - Preliminary Resulted Blood Peripheral NO GROWTH IN 2 DAYS 01/03/17 01:20 Anaerobic Blood Culture - Preliminary Resulted Blood Peripheral NO GROWTH IN 2 DAYS 01/03/17 01:21 Influenza Types A,B Antigen (WOLF) - Final Complete Nasal Washing NEGATIVE FOR FLU A AND B ANTIGEN.... 01/03/17 01:30 Aerobic Blood Culture - Preliminary Resulted Blood Peripheral NO GROWTH IN 2 DAYS 01/03/17 01:30 Anaerobic Blood Culture - Preliminary Resulted Klebsiella Pneumoniae Enterobacter Species 01/04/17 16:04 Aerobic Blood Culture - Preliminary Resulted Blood Peripheral NO GROWTH IN 1 DAY 01/04/17 16:04 Anaerobic Blood Culture - Final Resulted Blood Peripheral QNS - SEE AEROBE REPORT 01/04/17 16:04 Aerobic Blood Culture - Preliminary Resulted Blood Peripheral NO GROWTH IN 1 DAY 01/04/17 16:04 Anaerobic Blood Culture - Final Resulted Blood Peripheral QNS - SEE AEROBE REPORT Imaging Gall Bladder Ultrasound 01/03/17 0228 Signed Impressions: Service Date/Time: Tuesday, January 03, 2017 02:51 - CONCLUSION: Fatty liver. Renzo Rivera MD Abdomen/Pelvis CT 01/03/17 0103 Signed Impressions: Service Date/Time: Tuesday, January 03, 2017 01:51 - CONCLUSION: 1. Prostatic enlargement with suspected very prominent compression on the bladder floor creating a masslike area in the bladder floor. 2. Fatty infiltration liver. 3. Nonobstructing left renal stone. 4. Bibasilar areas of consolidation or atelectasis at the lung bases Renzo Rivera MD Chest X-Ray 01/03/17 0018 Signed Impressions: Service Date/Time: Tuesday, January 03, 2017 00:34 - CONCLUSION: Expiratory chest x-ray with suspected borderline cardiomegaly. Renzo Rivera MD Physical Exam GENERAL: awake and alert, not in respiratory distress. SKIN: Warm and dry. No rash or ecchymoses HEENT: [place] conjunctivae, no petechia or hemorrhage. Has dirty sclera. Moist oral mucosa. NECK: Supple, nontender, no meningeal signs. CARDIOVASCULAR: Regular rate and rhythm without murmurs, gallops, or rubs. RESPIRATORY: Clear to auscultation. Breath sounds equal bilaterally. No wheezes , rales, or rhonchi. GASTROINTESTINAL: Abdomen soft, bowel sounds are present and normoactive, not distended, with mild tenderness in the epigastric region. No guarding. No rebound MUSCULOSKELETAL: Extremities without clubbing, cyanosis, or edema. No calf tenderness. Warm and well-perfused. NEUROLOGICAL: Non-focal PSYCH: Normal affect, calm and cooperative LINE: PIV with no evidence of infection Assessment & Plan Remarks IMPRESSION Klebsiella and Enterobacter bacteremia, source? - ?GI/biliary, ? - ?prostate - clinically no evidence of PNA, CT findings likely more of atelectasis than consolidation - ?intermittent incomplete emptying Had previous PSAE bacteremia Previous problem with urinary retention Enlarged prostate Renal insufficiency Diabetes RECOMMENDATION Continue IV Zosyn Also on Cipro Follow C/S Monitor progress Will get WBC scan to see if any other occult source of infection Sunita Thompson MD Jan 05, 2017 13:21
[2017-01-05 20:30] VITALS: BP 147/92; PULSE 54; RESP 16; TEMP 97.6; O2SAT 93
[2017-01-05] MEDS: FINASTERIDE 5 MG TAB PO SCH (21:30)
[2017-01-05] MEDS: TAMSULOSIN HCL 0.4 MG CAP PO SCH (21:30)
[2017-01-06] VITALS (9 sets, daily range): BP systolic 128–137; BP diastolic 74–87; PULSE 52–60; RESP 16; TEMP 97.1–98.4; O2SAT 95–98
[2017-01-06] MEDS: PIPERACIL-TAZO 3.375 GM PREMIX 50 ML IV SCH ×4 (03:56→22:46)
[2017-01-06] MEDS: INSULIN ASPART SUPPLEMENTAL SCALE SQ SCH ×4 (06:22→21:00)
[2017-01-06] MEDS: CIPROFLOXACIN 750 MG TAB PO SCH ×2 (08:52→22:16)
[2017-01-06] MEDS: PIOGLITAZONE HCL 45 MG TAB PO SCH (08:52)
[2017-01-06] MEDS: ASPIRIN EC 81 MG TABEC PO SCH (08:52)
[2017-01-06] MEDS: SODIUM CHLORIDE 0.9% FLUSH 5 ML FLUSH FLUSH SCH ×2 (08:53→22:16)
[2017-01-06] MEDS: ATENOLOL 50 MG TAB PO SCH (08:53)
[2017-01-06] MEDS: PANTOPRAZOLE SODIUM 40 MG VIAL IV PUSH SCH (08:54)
[2017-01-06] MEDS: INSULIN HUMAN NPH/R 70/30 1,000 UNITS/10 ML VIAL SQ SCH ×2 (08:56→22:15)
[2017-01-06] MEDS: HEPARIN SODIUM - SQ 10,000 UNITS/ML VIAL SQ SCH ×2 (08:59→22:15)
[2017-01-06] MEDS: DICYCLOMINE HCL 20 MG TAB PO SCH ×3 (09:00→15:59)
--- NOTE | 2017-01-06 12:23 | HHI.GIFU ---
Subjective Remarks Pt eating lunch. No abd pain, n/v, diarrhea. Objective Vitals I&O Vital Signs Date Time Temp Pulse Resp B/P Pulse Ox O2 Delivery O2 Flow Rate FiO2 01/06/17 08:02 97.1 56 16 137/87 98 01/06/17 04:00 97.4 56 16 130/81 95 01/06/17 00:00 97.5 54 16 128/74 96 01/05/17 20:30 97.6 54 16 147/92 93 I/O 01/05/17 01/05/17 01/05/17 01/06/17 01/06/17 01/06/17 07:00 15:00 23:00 07:00 15:00 23:00 Intake Total 240 ml 980 ml 960 ml 240 ml Output Total 300 ml Balance -60 ml 980 ml 960 ml 240 ml Intake Oral 240 ml 980 ml 960 ml 240 ml Output Urine Total 300 ml # Voids 4 5 1 # Bowel Movements 0 1 0 Laboratory Date/Time Procedure Status Source Growth 01/04/17 16:04 Aerobic Blood Culture - Preliminary Resulted Blood Peripheral NO GROWTH IN 2 DAYS 01/04/17 16:04 Anaerobic Blood Culture - Final Resulted Blood Peripheral QNS - SEE AEROBE REPORT 01/03/17 01:21 Influenza Types A,B Antigen (WOLF) - Final Complete Nasal Washing NEGATIVE FOR FLU A AND B ANTIGEN.... Imaging Last Impressions Gall Bladder Ultrasound 01/03/17227 Signed Impressions: Service Date/Time: Tuesday, January 03, 2017 02:51 - CONCLUSION: Fatty liver. Renzo Rivera MD Abdomen/Pelvis CT 01/03/17 0103 Signed Impressions: Service Date/Time: Tuesday, January 03, 2017 01:51 - CONCLUSION: 1. Prostatic enlargement with suspected very prominent compression on the bladder floor creating a masslike area in the bladder floor. 2. Fatty infiltration liver. 3. Nonobstructing left renal stone. 4. Bibasilar areas of consolidation or atelectasis at the lung bases Renzo Rivera MD Chest X-Ray 01/03/17 0018 Signed Impressions: Service Date/Time: Tuesday, January 03, 2017 00:34 - CONCLUSION: Expiratory chest x-ray with suspected borderline cardiomegaly. Renzo Rivera MD Physical Exam HEENT: Normocephalic; atraumatic; no jaundice. CHEST: CTA CARDIAC: RRR ABDOMEN: Soft, nondistended, nontender; no hepatosplenomegaly; bowel sounds are present in all four quadrants. EXTREMITIES: No clubbing, cyanosis, or edema. SKIN: Normal; no rash; no jaundice. RADAR OPERATOR: No focal deficits; alert and oriented times three. Assessment and Plan Plan ASSESSMENT: - Abdominal pain improving. Came in for chills, malaise, diffuse abdominal cramping from his epigastric area to his entire abdomen/back. Denies suspicious food, sick contacts. Unclear if he was recently on abx. Abdomen/Pelvis CT ( 01/03/17)---> 1. Prostatic enlargement with suspected very prominent compression on the bladder floor creating a masslike area in the bladder floor. 2. Fatty infiltration liver. 3. Nonobstructing left renal stone. 4. Bibasilar areas of consolidation or atelectasis at the lung bases. Gall Bladder Ultrasound (01/03/17)---> Fatty liver. WBC normal 10.1. Lipase 129. on admission. LFTs trending down with T. Bili 1.3,, AST 85,, ALT 262, Alk Phosph 127. These were normal in September of 2016. He last had a colonoscopy 1 year ago, cannot state who did this. Now on Cipro. IMPROVED. PPI - Elevated LFTs. CT/US as above, fatty liver. Lipase normal. LFTs trending down with T. Bili 1.3,, AST 85,, ALT 262, Alk Phosph 127. These were normal in September of 2016. AFP 1.7, Alpha 1 Antitrypsin 119, Ceruloplasmin 24 WNL, Hepatitis negative, MELIZA neg, AMA nonspecifically elevated 24.9, ASMA neg, alpha 1 antitrypsin normal Celiac panel neg. Ferritin 477, Iron Saturation 5.1%. - SERGEI with abnormal imaging of his bladder. CT with Prostatic enlargement with suspected very prominent compression on the bladder floor creating a masslike area in the bladder floor. He has a hx of BPH with urinary retention, requiring mratínez catheter, pathology negative. He reports that he had the catheter removed in October. Creat 1.26 - Questionable PNA. S/P dose of azithromycin/ceftriaxone. Cipro,zosyn. - HTN, DM, Hx TIA, CAD. Per primary PLAN: - DENICE - PO PPI QD - Dicyclomine - LFTs in am - Avoid hepatotoxic meds - Supportive care - If LFTs remain persistently elevated or worsen, consider liver biopsy - Further recommendations to follow based on the results of above - Pt seen and examined by Dr. García and this note is written on his behalf Fallon Hernandez Jan 06, 2017 12:23
--- NOTE | 2017-01-06 13:23 | RADRPT ---
EXAM DATE/TIME: 01/05/2017 15:59 [facility] COMPARISON: CT ABDOMEN & PELVIS W CONTRAST, January 03, 2017, 1:51. INDICATIONS : GERD, HLD, DM, ID DOSE: 21.7 mCi Tc99m Ceretec labeled white blood cells IV PLANAR IMAGIN min, 3 hrs, 20 hrs MEDICAL HISTORY : Myocardial infarction. Diabetes mellitus type 2. Gastroesophageal reflux disease. Hypertension. Enlar ged prostate. Strokes. SURGICAL HISTORY : Coronary artery stent. ENCOUNTER: Initial ACUITY: 3 days PAIN SCALE: 0/10 LOCATION: TECHNIQUE: Following the in vitro labeling of autologous white cells and reinjection, whole body scan was perfor med at specified times. FINDINGS: There is no abnormal biodistribution of radiotracer in the thorax, abdomen or pelvis. There is some f ocal uptake in the region of the right maxilla. This would suggest dental disease.. CONCLUSION: 1. Probable right-sided dental disease. 2. Otherwise, unremarkable exam. Yao Pinto MD on January 06, 2017 at 13:19 Board Certified Radiologist. This report was verified electronically.
--- NOTE | 2017-01-06 14:59 | HHI.PR ---
Subjective Remarks Patient went for scan , seen when he returned. Family at bedside. No n/v/d/c. Patient feels very tired. Says he is gettign sob with movement. No fever or chills. Objective Vitals Vital Signs Date Time Temp Pulse Resp B/P Pulse Ox O2 Delivery O2 Flow Rate FiO2 01/06/17 12:02 97.2 60 16 129/86 97 01/06/17 08:02 97.1 56 16 137/87 98 01/06/17 04:00 97.4 56 16 130/81 95 01/06/17 00:00 97.5 54 16 128/74 96 01/05/17 20:30 97.6 54 16 147/92 93 I/O 01/05/17 01/05/17 01/05/17 01/06/17 01/06/17 01/06/17 07:00 15:00 23:00 07:00 15:00 23:00 Intake Total 240 ml 980 ml 960 ml 240 ml Output Total 300 ml Balance -60 ml 980 ml 960 ml 240 ml Intake Oral 240 ml 980 ml 960 ml 240 ml Output Urine Total 300 ml # Voids 4 5 1 # Bowel Movements 0 1 0 Result Diagram: 01/05/1762201/05/17622 Objective Remarks GENERAL: 66 yo male, well nourished, well developed patient, in not acute distress. SKIN: Warm and dry. HEAD: Atraumatic. Normocephalic. EYES: Pupils equal and round. No scleral icterus. No injection or drainage. ENT: No nasal bleeding or discharge. Mucous membranes pink and moist. NECK: Trachea midline. No JVD. CARDIOVASCULAR: Regular rate and rhythm. RESPIRATORY: No accessory muscle use. Clear to auscultation. Breath sounds equal bilaterally. GASTROINTESTINAL: Abdomen soft, non-tender, nondistended. Hepatic and splenic margins not palpable. MUSCULOSKELETAL: Extremities without clubbing, cyanosis, or edema. No obvious deformities. NEUROLOGICAL: Awake and alert. No obvious cranial nerve deficits. Motor grossly within normal limits. Five out of 5 muscle strength in the arms and legs. Normal speech. PSYCHIATRIC: Appropriate mood and affect; insight and judgment normal. Procedures None A/P Problem List: (1) Pneumonia ICD Code: J18.9 Status: Acute (2) Sepsis ICD Code: A41.9 Status: Acute (3) Elevated liver enzymes ICD Code: R74.8 Status: Acute (4) HTN (hypertension) ICD Code: I10 Status: Chronic (5) DM (diabetes mellitus) ICD Code: E11.9 Status: Chronic (6) Bacteremia ICD Code: R78.81 Status: Acute (7) Leukocytosis ICD Code: D72.829 Status: Acute Assessment and Plan Abdominal pain: Uncertain etiology. Continue workup. Appreciate GI recommendations. Elevated transaminases: Patient denies alcohol use. Ultrasound shows fatty liver. Monitor labs. Hepatitis panel is negative. LFTs are trending down. Poss acute 2/2 sepsis. Sepsis secondary to pneumonia/also bacteremia: Patient with fever, tachycardia on admission. Suspected source is pneumonia. CT showed areas of consolidation versus atelectasis in the lung bases. Bacteremia: Blood culture growing GNR Klebsiella pneumoniae and Enterobacter species. Repeat Blood cultures 01/04/17 NTD. Monitor unril neg Blood cx. Continue antibiotics. Infectious disease specialist consulted and following. ID following appreciate recommendations. Patient went for RBC scan to evaluate for occult infection Hypertension: Fairly controlled Continue atenolol, amlodipine. Monitor VS and adjust meds if need. Vasotec IV prn if high BP SERGEI. Continue IVF. Monitor Kidney indices. Avoid nephrotoxics. UA neg. Pt also has BPH. Diabetes mellitus type 2, controlled A1c 5.3 07/29. Monitor Accu-Cheks and cover with sliding scale insulin. Continue 70/30 insulin. Hold Janumet secondary to renal insufficiency. Continue Invokana, pioglitazone. BPH: Continue Flomax, Proscar. Follow up with Dr Power as OP. Has an appointment in February. DVT prophylaxis: Heparin. Discussed with patient, nurse, family Anastasiya Sellers MD Jan 06, 2017 14:59
--- NOTE | 2017-01-06 15:46 | HHI.IDPN ---
Subjective Subjective Remarks Notes reviewed No fever No new (+) BC WBC scan with some uptake in mouth - no complaints however LFTs improving Repeat UA now with pyuria Antibiotics Zosyn Cipro Lines PIV Past Medical History HTN DM Type 2 Urinary Obstruction and retention BPH Past Surgical History Cystoscopy Allergies: Coded Allergies: Shellfish (Verified Allergy, Severe, Anaphylaxis, 01/03/17) Objective . Vital Signs Date Time Temp Pulse Resp B/P Pulse Ox O2 Delivery O2 Flow Rate FiO2 01/06/17 12:02 97.2 60 16 129/86 97 01/06/17 08:02 97.1 56 16 137/87 98 01/06/17 04:00 97.4 56 16 130/81 95 01/06/17 00:00 97.5 54 16 128/74 96 01/05/17 20:30 97.6 54 16 147/92 93 01/05/17 01/05/17 01/06/17 15:00 23:00 07:00 Intake Total 980 ml 960 ml 240 ml Balance 980 ml 960 ml 240 ml Intake Oral 980 ml 960 ml 240 ml # Voids 4 5 1 # Bowel Movements 1 0 . Laboratory Tests Test 01/05/17 06:23 White Blood Count 10.1 TH/MM3 Red Blood Count 4.58 MIL/MM3 Hemoglobin 12.6 GM/DL Hematocrit 38.9 % Mean Corpuscular Volume 84.9 FL Mean Corpuscular Hemoglobin 27.5 PG Mean Corpuscular Hemoglobin 32.4 % Concent Red Cell Distribution Width 13.3 % Platelet Count 147 TH/MM3 Mean Platelet Volume 10.1 FL Neutrophils (%) (Auto) 64.4 % Lymphocytes (%) (Auto) 20.2 % Monocytes (%) (Auto) 13.2 % Eosinophils (%) (Auto) 1.6 % Basophils (%) (Auto) 0.6 % Neutrophils # (Auto) 6.5 TH/MM3 Lymphocytes # (Auto) 2.0 TH/MM3 Monocytes # (Auto) 1.3 TH/MM3 Eosinophils # (Auto) 0.2 TH/MM3 Basophils # (Auto) 0.1 TH/MM3 CBC Comment DIFF FINAL Differential Comment Laboratory Tests Test 01/05/17 01/05/17 06:23 10:43 Sodium Level 140 MEQ/L Potassium Level 3.9 MEQ/L Chloride Level 109 MEQ/L Carbon Dioxide Level 25.5 MEQ/L Anion Gap 6 MEQ/L Blood Urea Nitrogen 15 MG/DL Creatinine 1.26 MG/DL Estimat Glomerular Filtration 70 ML/MIN Rate Random Glucose 129 MG/DL Calcium Level 8.6 MG/DL Total Bilirubin 1.3 MG/DL Aspartate Amino Transf 85 U/L (AST/SGOT) Alanine Aminotransferase 262 U/L (ALT/SGPT) Alkaline Phosphatase 127 U/L Total Protein 6.9 GM/DL Albumin 3.1 GM/DL Lactic Acid Level 0.8 mmol/L Microbiology Date/Time Procedure Status Source Growth 01/04/17 16:04 Aerobic Blood Culture - Preliminary Resulted Blood Peripheral NO GROWTH IN 2 DAYS 01/04/17 16:04 Anaerobic Blood Culture - Final Resulted Blood Peripheral QNS - SEE AEROBE REPORT 01/04/17 16:04 Aerobic Blood Culture - Preliminary Resulted Blood Peripheral NO GROWTH IN 2 DAYS 01/04/17 16:04 Anaerobic Blood Culture - Final Resulted Blood Peripheral QNS - SEE AEROBE REPORT Imaging Gall Bladder Ultrasound 01/03/178 Signed Impressions: Service Date/Time: Tuesday, January 03, 2017 02:51 - CONCLUSION: Fatty liver. Renzo Rivera MD Abdomen/Pelvis CT 01/03/17 0103 Signed Impressions: Service Date/Time: Tuesday, January 03, 2017 01:51 - CONCLUSION: 1. Prostatic enlargement with suspected very prominent compression on the bladder floor creating a masslike area in the bladder floor. 2. Fatty infiltration liver. 3. Nonobstructing left renal stone. 4. Bibasilar areas of consolidation or atelectasis at the lung bases Renzo Rivear MD Chest X-Ray 01/03/17 0018 Signed Impressions: Service Date/Time: Tuesday, January 03, 2017 00:34 - CONCLUSION: Expiratory chest x-ray with suspected borderline cardiomegaly. Renzo Rivera MD Physical Exam GENERAL: awake and alert, NAD SKIN: Warm and dry. No generalized rash HEENT: [place] conjunctivae, no petechia or hemorrhage. Moist oral mucosa. NECK: Supple, nontender, no meningeal signs. CARDIOVASCULAR: Regular rate and rhythm without murmurs, gallops, or rubs. RESPIRATORY: Clear to auscultation. Breath sounds equal bilaterally. No wheezes , rales, or rhonchi. GASTROINTESTINAL: Abdomen soft, bowel sounds are present and normoactive, not distended, not tender. No guarding. No rebound MUSCULOSKELETAL: Extremities without clubbing, cyanosis, or edema. No calf tenderness. NEUROLOGICAL: Non-focal PSYCH: Normal affect, calm and cooperative LINE: PIV with no evidence of infection Assessment & Plan Remarks IMPRESSION Klebsiella and Enterobacter bacteremia, source? - ?GI/biliary, ? - ?prostate - clinically no evidence of PNA, CT findings likely more of atelectasis than consolidation - ?intermittent incomplete emptying - no dental complaints Had previous PSAE bacteremia Previous problem with urinary retention Enlarged prostate Renal insufficiency Diabetes RECOMMENDATION Continue IV Zosyn Also on Cipro Await sensitivity result Monitor progress Will get WBC scan to see if any other occult source of infection Sunita Thompson MD Jan 06, 2017 15:46
[2017-01-06] MEDS: TAMSULOSIN HCL 0.4 MG CAP PO SCH (22:15)
[2017-01-06] MEDS: FINASTERIDE 5 MG TAB PO SCH (22:16)
[2017-01-07] VITALS (10 sets, daily range): BP systolic 130–163; BP diastolic 75–98; PULSE 50–65; RESP 16–17; TEMP 95.7–96.8; O2SAT 95–100
[2017-01-07] MEDS: PIPERACIL-TAZO 3.375 GM PREMIX 50 ML IV SCH ×4 (02:53→20:55)
[2017-01-07 06:12] LABS: AUTOMATED NEUTROPHIL # 5.6 TH/MM3 (1.8-7.7); BASOPHIL # 0.1 TH/MM3 (0-0.2); BASOPHIL % 0.6 % (0.0-2.0); EOSINOPHIL # 0.3 TH/MM3 (0-0.4); EOSINOPHIL % 2.7 % (0.0-4.0); HEMO FLAGS DIFF FINAL; LYMPH % 27.3 % (9.0-44.0); LYMPHOCYTE # 2.6 TH/MM3 (1.0-4.8); MEAN CELL VOLUME 83.9 FL (80.0-100.0); MEAN CORPUSCULAR HEMOGLOBIN 28.5 PG (27.0-34.0); MONO % 10.3 % (0.0-8.0); NEUT % 59.1 % (16.0-70.0); PLATELET COUNT 205 TH/MM3 (150-450); RED BLOOD COUNT 4.76 MIL/MM3 (4.50-5.90); RED CELL DISTRIBUTION WIDTH 12.9 % (11.6-17.2); WHITE BLOOD COUNT 9.4 TH/MM3 (4.0-11.0)
[2017-01-07 06:17] LABS: BICARBONATE 27.3 MEQ/L (21.0-32.0); INDIRECT BILIRUBIN 0.7 MG/DL (0.0-0.8); POTASSIUM 3.8 MEQ/L (3.5-5.1); TOTAL BILIRUBIN ADULT 0.8 MG/DL (0.2-1.0)
[2017-01-07] MEDS: INSULIN ASPART SUPPLEMENTAL SCALE SQ SCH ×4 (06:43→20:56)
[2017-01-07] MEDS: ATENOLOL 25 MG TAB PO SCH (09:00)
[2017-01-07] MEDS: HEPARIN SODIUM - SQ 10,000 UNITS/ML VIAL SQ SCH ×2 (09:50→20:55)
[2017-01-07] MEDS: INSULIN HUMAN NPH/R 70/30 1,000 UNITS/10 ML VIAL SQ SCH ×2 (09:50→20:55)
[2017-01-07] MEDS: PANTOPRAZOLE SOD 40 MG DELAYED RELEASE TAB PO SCH (09:50)
[2017-01-07] MEDS: ASPIRIN EC 81 MG TABEC PO SCH (09:51)
[2017-01-07] MEDS: DICYCLOMINE HCL 20 MG TAB PO SCH ×3 (09:51→17:53)
[2017-01-07] MEDS: PIOGLITAZONE HCL 45 MG TAB PO SCH (09:51)
[2017-01-07] MEDS: CIPROFLOXACIN 750 MG TAB PO SCH (09:51)
[2017-01-07] MEDS: SODIUM CHLORIDE 0.9% FLUSH 5 ML FLUSH FLUSH SCH ×2 (09:52→20:56)
--- NOTE | 2017-01-07 13:36 | HHI.IDPN ---
Subjective Subjective Remarks Notes reviewed No fever No new (+) BC WBC scan with some uptake in mouth - no complaints however LFTs improving Repeat UA now with pyuria Abdominal pain is gone Patient states at times, after he urinates, he has to go again soon after PVR done by urology 150 ml Antibiotics Zosyn Cipro Lines PIV Past Medical History HTN DM Type 2 Urinary Obstruction and retention BPH Past Surgical History Cystoscopy Allergies: Coded Allergies: Shellfish (Verified Allergy, Severe, Anaphylaxis, 01/03/17) Objective . Vital Signs Date Time Temp Pulse Resp B/P Pulse Ox O2 Delivery O2 Flow Rate FiO2 01/07/17 07:15 59 01/07/17 07:05 95.7 59 17 163/98 96 01/07/17 03:37 96.8 53 16 141/75 95 01/07/17 02:13 54 157/82 98 01/07/17 00:00 96.5 50 16 130/80 96 01/06/17 23:50 58 01/06/17 20:27 97.3 52 16 136/80 96 01/06/17 18:48 Room Air 01/06/17 18:47 54 01/06/17 18:31 96 21 01/06/17 16:20 98.4 52 16 131/80 96 01/06/17 01/06/17 01/07/17 15:00 23:00 07:00 Intake Total 1080 ml 480 ml 449 ml Output Total 200 ml Balance 1080 ml 480 ml 249 ml Intake Oral 1080 ml 480 ml 240 ml IV Total 209 ml Output Urine Total 200 ml # Voids 5 3 1 # Bowel Movements 1 0 . Laboratory Tests Test 01/07/17 04:50 White Blood Count 9.4 TH/MM3 Red Blood Count 4.76 MIL/MM3 Hemoglobin 13.6 GM/DL Hematocrit 40.0 % Mean Corpuscular Volume 83.9 FL Mean Corpuscular Hemoglobin 28.5 PG Mean Corpuscular Hemoglobin 34.0 % Concent Red Cell Distribution Width 12.9 % Platelet Count 205 TH/MM3 Mean Platelet Volume 10.0 FL Neutrophils (%) (Auto) 59.1 % Lymphocytes (%) (Auto) 27.3 % Monocytes (%) (Auto) 10.3 % Eosinophils (%) (Auto) 2.7 % Basophils (%) (Auto) 0.6 % Neutrophils # (Auto) 5.6 TH/MM3 Lymphocytes # (Auto) 2.6 TH/MM3 Monocytes # (Auto) 1.0 TH/MM3 Eosinophils # (Auto) 0.3 TH/MM3 Basophils # (Auto) 0.1 TH/MM3 CBC Comment DIFF FINAL Differential Comment Laboratory Tests Test 01/07/17 04:50 Sodium Level 139 MEQ/L Potassium Level 3.8 MEQ/L Chloride Level 104 MEQ/L Carbon Dioxide Level 27.3 MEQ/L Anion Gap 8 MEQ/L Blood Urea Nitrogen 13 MG/DL Creatinine 1.31 MG/DL Estimat Glomerular Filtration 67 ML/MIN Rate Random Glucose 171 MG/DL Calcium Level 8.6 MG/DL Total Bilirubin 0.8 MG/DL Direct Bilirubin 0.1 MG/DL Indirect Bilirubin 0.7 MG/DL Aspartate Amino Transf 65 U/L (AST/SGOT) Alanine Aminotransferase 175 U/L (ALT/SGPT) Alkaline Phosphatase 129 U/L Total Protein 7.4 GM/DL Albumin 3.0 GM/DL Microbiology Date/Time Procedure Status Source Growth 01/04/17 16:04 Aerobic Blood Culture - Preliminary Resulted Blood Peripheral NO GROWTH IN 3 DAYS 01/04/17 16:04 Anaerobic Blood Culture - Final Resulted Blood Peripheral QNS - SEE AEROBE REPORT 01/04/17 16:04 Aerobic Blood Culture - Preliminary Resulted Blood Peripheral NO GROWTH IN 3 DAYS 01/04/17 16:04 Anaerobic Blood Culture - Final Resulted Blood Peripheral QNS - SEE AEROBE REPORT 01/06/17 16:55 Urine Culture - Preliminary Resulted Urine Clean Catch NO GROWTH IN 24 HOURS. Imaging Gall Bladder Ultrasound 01/03/17 0228 Signed Impressions: Service Date/Time: Tuesday, January 03, 2017 02:51 - CONCLUSION: Fatty liver. Renzo Rivera MD Abdomen/Pelvis CT 01/03/17 0103 Signed Impressions: Service Date/Time: Tuesday, January 03, 2017 01:51 - CONCLUSION: 1. Prostatic enlargement with suspected very prominent compression on the bladder floor creating a masslike area in the bladder floor. 2. Fatty infiltration liver. 3. Nonobstructing left renal stone. 4. Bibasilar areas of consolidation or atelectasis at the lung bases Renzo Rivera MD Chest X-Ray 01/03/17 0018 Signed Impressions: Service Date/Time: Tuesday, January 03, 2017 00:34 - CONCLUSION: Expiratory chest x-ray with suspected borderline cardiomegaly. Renzo Rivera MD Physical Exam GENERAL: awake and alert, NAD SKIN: Warm and dry. No generalized rash HEENT: [place] conjunctivae, no petechia or hemorrhage. Moist oral mucosa. NECK: Supple, nontender, no meningeal signs. CARDIOVASCULAR: Regular rate and rhythm without murmurs, gallops, or rubs. RESPIRATORY: Clear to auscultation. Breath sounds equal bilaterally. No wheezes , rales, or rhonchi. GASTROINTESTINAL: Abdomen soft, not distended, not tender. No guarding. No rebound MUSCULOSKELETAL: Extremities without clubbing, cyanosis, or edema. No calf tenderness. NEUROLOGICAL: Non-focal PSYCH: Normal affect, calm and cooperative LINE: PIV with no evidence of infection Assessment & Plan Remarks IMPRESSION Klebsiella and Enterobacter bacteremia, source? - ?GI/biliary, ? - ?prostate - clinically no evidence of PNA, CT findings likely more of atelectasis than consolidation - ?intermittent incomplete emptying - no dental complaints Had previous PSAE bacteremia Previous problem with urinary retention Enlarged prostate Renal insufficiency Diabetes RECOMMENDATION Change to Levaquin (Once a day) Stop IV Zosyn after today Repeat Urine C/S Monitor progress Likely 2-3 weeks more of oral Abx on D/C Explained plan to patient Sunita Thompson MD Jan 07, 2017 13:36
--- NOTE | 2017-01-07 16:41 | HHI.GIFU ---
Subjective Remarks Resting in bed. No distress. No n/v. No abdominal pain. No diarrhea. Tolerating diet. (Fallon Hernandez) Objective Vitals I&O Vital Signs Date Time Temp Pulse Resp B/P Pulse Ox O2 Delivery O2 Flow Rate FiO2 01/07/17 11:31 96.2 65 17 154/95 95 01/07/17 07:15 59 01/07/17 07:05 95.7 59 17 163/98 96 01/07/17 03:37 96.8 53 16 141/75 95 01/07/17 02:13 54 157/82 98 01/07/17 00:00 96.5 50 16 130/80 96 01/06/17 23:50 58 01/06/17 20:27 97.3 52 16 136/80 96 01/06/17 18:48 Room Air 01/06/17 18:47 54 01/06/17 18:31 96 21 I/O 01/06/17 01/06/17 01/06/17 01/07/17 01/07/17 01/07/17 07:00 15:00 23:00 07:00 15:00 23:00 Intake Total 240 ml 1080 ml 480 ml 449 ml Output Total 200 ml Balance 240 ml 1080 ml 480 ml 249 ml Intake Oral 240 ml 1080 ml 480 ml 240 ml IV Total 209 ml Output Urine Total 200 ml # Voids 1 5 3 1 # Bowel Movements 0 1 0 Laboratory Laboratory Tests Test 01/07/17 04:50 White Blood Count 9.4 Red Blood Count 4.76 Hemoglobin 13.6 Hematocrit 40.0 Mean Corpuscular Volume 83.9 Mean Corpuscular Hemoglobin 28.5 Mean Corpuscular Hemoglobin 34.0 Concent Red Cell Distribution Width 12.9 Platelet Count 205 Mean Platelet Volume 10.0 Neutrophils (%) (Auto) 59.1 Lymphocytes (%) (Auto) 27.3 Monocytes (%) (Auto) 10.3 Eosinophils (%) (Auto) 2.7 Basophils (%) (Auto) 0.6 Neutrophils # (Auto) 5.6 Lymphocytes # (Auto) 2.6 Monocytes # (Auto) 1.0 Eosinophils # (Auto) 0.3 Basophils # (Auto) 0.1 CBC Comment DIFF FINAL Differential Comment Sodium Level 139 Potassium Level 3.8 Chloride Level 104 Carbon Dioxide Level 27.3 Anion Gap 8 Blood Urea Nitrogen 13 Creatinine 1.31 Estimat Glomerular Filtration 67 Rate Random Glucose 171 Calcium Level 8.6 Total Bilirubin 0.8 Direct Bilirubin 0.1 Indirect Bilirubin 0.7 Aspartate Amino Transf 65 (AST/SGOT) Alanine Aminotransferase 175 (ALT/SGPT) Alkaline Phosphatase 129 Total Protein 7.4 Albumin 3.0 Date/Time Procedure Status Source Growth 01/06/17 16:55 Urine Culture - Preliminary Resulted Urine Clean Catch NO GROWTH IN 24 HOURS. 01/04/17 16:04 Aerobic Blood Culture - Preliminary Resulted Blood Peripheral NO GROWTH IN 3 DAYS 01/04/17 16:04 Anaerobic Blood Culture - Final Resulted Blood Peripheral QNS - SEE AEROBE REPORT 01/03/17 01:21 Influenza Types A,B Antigen (WOLF) - Final Complete Nasal Washing NEGATIVE FOR FLU A AND B ANTIGEN.... Imaging Last Impressions Tumor Localization 01/05/17 0000 Signed Impressions: Service Date/Time: December 15:59 - CONCLUSION: 1. Probable right-sided dental disease. 2. Otherwise, unremarkable exam. Yao Pinto MD Gall Bladder Ultrasound 01/03/17 0228 Signed Impressions: Service Date/Time: Tuesday, January 03, 2017 02:51 - CONCLUSION: Fatty liver. Renzo Rivera MD Abdomen/Pelvis CT 01/03/17 0103 Signed Impressions: Service Date/Time: Tuesday, January 03, 2017 01:51 - CONCLUSION: 1. Prostatic enlargement with suspected very prominent compression on the bladder floor creating a masslike area in the bladder floor. 2. Fatty infiltration liver. 3. Nonobstructing left renal stone. 4. Bibasilar areas of consolidation or atelectasis at the lung bases Renzo Rivera MD Chest X-Ray 01/03/17 0018 Signed Impressions: Service Date/Time: Tuesday, January 03, 2017 00:34 - CONCLUSION: Expiratory chest x-ray with suspected borderline cardiomegaly. Renzo Rivera MD Physical Exam HEENT: Normocephalic; atraumatic; no jaundice. CHEST: CTA CARDIAC: RRR ABDOMEN: Soft, nondistended, nontender; no hepatosplenomegaly; bowel sounds are present in all four quadrants. EXTREMITIES: No clubbing, cyanosis, or edema. SKIN: Normal; no rash; no jaundice. SOFTWARE ENGINEER KERNEL: No focal deficits; alert and oriented times three. (Fallon Hernandez) Assessment and Plan Plan ASSESSMENT: - Abdominal pain improving. Came in for chills, malaise, diffuse abdominal cramping from his epigastric area to his entire abdomen/back. Denies suspicious food, sick contacts. Unclear if he was recently on abx. Abdomen/Pelvis CT ( 01/03/17)---> 1. Prostatic enlargement with suspected very prominent compression on the bladder floor creating a masslike area in the bladder floor. 2. Fatty infiltration liver. 3. Nonobstructing left renal stone. 4. Bibasilar areas of consolidation or atelectasis at the lung bases. Gall Bladder Ultrasound (01/03/17)---> Fatty liver. WBC normal 10.1. Lipase 129. on admission. LFTs trending down with T. Bili 0.8, AST 65, ALT 175, Alk Phosph 129. These were normal in September of 2016. He last had a colonoscopy 1 year ago, cannot state who did this. Now on Cipro. ABDOMINAL PAIN HAS RESOLVED. PPI - Elevated LFTs. CT/US as above, fatty liver. Lipase normal. LFTs trending down. September of 2016. AFP 1.7, Alpha 1 Antitrypsin 119, Ceruloplasmin 24 WNL , Hepatitis negative, MELIZA neg, AMA nonspecifically elevated 24.9, ASMA neg, alpha 1 antitrypsin normal Celiac panel neg. Ferritin 477, Iron Saturation 5.1% . - SERGIE with abnormal imaging of his bladder. CT with Prostatic enlargement with suspected very prominent compression on the bladder floor creating a masslike area in the bladder floor. He has a hx of BPH with urinary retention, requiring martínez catheter, pathology negative. He reports that he had the catheter removed in October. Creat 1.31 - Questionable PNA. S/P dose of azithromycin/ceftriaxone. Cipro,zosyn. S/P WBC Scan. - HTN, DM, Hx TIA, CAD. Per primary PLAN: - DENICE - PPI - Dicyclomine - Avoid hepatotoxic meds - GI will sign off, please reconsult as needed - Pt seen and examined by Dr. García and this note is written on his behalf ( Fallon Hernandez) Physician Comments patient was seen and examined, agree with above note, FU LFTs in 1 wks as outpatient and FU with GI in 10 days (Ramin García MD) Fallon Hernandez Jan 07, 2017 16:41 Ramin García MD Jan 07, 2017 17:01
--- NOTE | 2017-01-07 17:31 | HHI.PR ---
Subjective Remarks Patient in nad. Denies chest pain, n/v/d/c. In the chair. feels tiired. SOB improving. No fever or chills. Patient with dental infection per scan, I adviced patient to follow up with the dentist. Objective Vitals Vital Signs Date Time Temp Pulse Resp B/P Pulse Ox O2 Delivery O2 Flow Rate FiO2 01/07/17 15:20 96.6 51 17 138/81 97 01/07/17 11:31 96.2 65 17 154/95 95 01/07/17 07:15 59 01/07/17 07:05 95.7 59 17 163/98 96 01/07/17 03:37 96.8 53 16 141/75 95 01/07/17 02:13 54 157/82 98 01/07/17 00:00 96.5 50 16 130/80 96 01/06/17 23:50 58 01/06/17 20:27 97.3 52 16 136/80 96 01/06/17 18:48 Room Air 01/06/17 18:47 54 01/06/17 18:31 96 21 I/O 01/06/17 01/06/17 01/06/17 01/07/17 01/07/17 01/07/17 07:00 15:00 23:00 07:00 15:00 23:00 Intake Total 240 ml 1080 ml 480 ml 449 ml 960 ml Output Total 200 ml Balance 240 ml 1080 ml 480 ml 249 ml 960 ml Intake Oral 240 ml 1080 ml 480 ml 240 ml 960 ml IV Total 209 ml Output Urine Total 200 ml # Voids 1 5 3 1 4 # Bowel Movements 0 1 0 1 Result Diagram: 01/07/17 0450 01/07/17 0450 Imaging Last Impressions Tumor Localization 01/05/17 0000 Signed Impressions: Service Date/Time: December 15:59 - CONCLUSION: 1. Probable right-sided dental disease. 2. Otherwise, unremarkable exam. Yao Pinto MD Gall Bladder Ultrasound 01/03/17 0228 Signed Impressions: Service Date/Time: Tuesday, January 03, 2017 02:51 - CONCLUSION: Fatty liver. Rezno Rivera MD Abdomen/Pelvis CT 01/03/17 0103 Signed Impressions: Service Date/Time: Tuesday, January 03, 2017 01:51 - CONCLUSION: 1. Prostatic enlargement with suspected very prominent compression on the bladder floor creating a masslike area in the bladder floor. 2. Fatty infiltration liver. 3. Nonobstructing left renal stone. 4. Bibasilar areas of consolidation or atelectasis at the lung bases Renzo Rivera MD Chest X-Ray 01/03/17 0018 Signed Impressions: Service Date/Time: Tuesday, January 03, 2017 00:34 - CONCLUSION: Expiratory chest x-ray with suspected borderline cardiomegaly. Renzo Rivera MD Objective Remarks GENERAL: 66 yo male, well nourished, well developed patient, in not acute distress. SKIN: Warm and dry. HEAD: Atraumatic. Normocephalic. EYES: Pupils equal and round. No scleral icterus. No injection or drainage. ENT: No nasal bleeding or discharge. Mucous membranes pink and moist. NECK: Trachea midline. No JVD. CARDIOVASCULAR: Regular rate and rhythm. RESPIRATORY: No accessory muscle use. Clear to auscultation. Breath sounds equal bilaterally. GASTROINTESTINAL: Abdomen soft, non-tender, nondistended. Hepatic and splenic margins not palpable. MUSCULOSKELETAL: Extremities without clubbing, cyanosis, or edema. No obvious deformities. NEUROLOGICAL: Awake and alert. No obvious cranial nerve deficits. Motor grossly within normal limits. Five out of 5 muscle strength in the arms and legs. Normal speech. PSYCHIATRIC: Appropriate mood and affect; insight and judgment normal. Procedures None A/P Problem List: (1) Pneumonia ICD Code: J18.9 Status: Acute (2) Sepsis ICD Code: A41.9 Status: Acute (3) Elevated liver enzymes ICD Code: R74.8 Status: Acute (4) HTN (hypertension) ICD Code: I10 Status: Chronic (5) DM (diabetes mellitus) ICD Code: E11.9 Status: Chronic (6) Bacteremia ICD Code: R78.81 Status: Acute (7) Leukocytosis ICD Code: D72.829 Status: Acute Assessment and Plan Abdominal pain: Uncertain etiology. Continue workup. Appreciate GI recommendations. Elevated transaminases: Patient denies alcohol use. Ultrasound shows fatty liver. Monitor labs. Hepatitis panel is negative. LFTs are trending down. Poss acute 2/2 sepsis. Sepsis secondary to pneumonia/also bacteremia: Patient with fever, tachycardia on admission. Suspected source is pneumonia. CT showed areas of consolidation versus atelectasis in the lung bases. Bacteremia: Blood culture growing GNR Klebsiella pneumoniae and Enterobacter species. Repeat Blood cultures 01/04/17 NTD. Monitor unril neg Blood cx. Continue antibiotics. Infectious disease specialist consulted and following. ID following appreciate recommendations. Patient went for RBC scan to evaluate for occult infection. 1. Probable right-sided dental disease. 2. Otherwise, unremarkable exam. Discussed with the patient and family ( daughter at bedside) to follow up with the dentist. Hypertension: Fairly controlled Continue atenolol, amlodipine. Monitor VS and adjust meds if need. Vasotec IV prn if high BP SERGEI. Continue IVF. Monitor Kidney indices. Avoid nephrotoxics. UA neg. Pt also has BPH. Diabetes mellitus type 2, controlled A1c 5.3 07/29. Monitor Accu-Cheks and cover with sliding scale insulin. Continue 70/30 insulin. Hold Janumet secondary to renal insufficiency. Continue Invokana, pioglitazone. BPH: Continue Flomax, Proscar. Follow up with Dr Power as OP. Has an appointment in February. DVT prophylaxis: Heparin. Discussed with patient, nurse, family Anastasiya eSllers MD Jan 07, 2017 17:31
[2017-01-07] MEDS: FINASTERIDE 5 MG TAB PO SCH (20:56)
[2017-01-07] MEDS: TAMSULOSIN HCL 0.4 MG CAP PO SCH (20:56)
[2017-01-07] MEDS ORDERED: LEVOFLOXACIN 750 MG TAB PO SCH (22:00)
[2017-01-08] VITALS: BP 136/77; PULSE 59; RESP 18; TEMP 96.8; O2SAT 96
[2017-01-08] MEDS: PIPERACIL-TAZO 3.375 GM PREMIX 50 ML IV SCH ×2 (03:15→09:37)
[2017-01-08 04:00] VITALS: BP 141/76; PULSE 57; RESP 18; TEMP 96.6; O2SAT 98
[2017-01-08] MEDS: INSULIN ASPART SUPPLEMENTAL SCALE SQ SCH (06:22)
[2017-01-08] MEDS ORDERED: LEVA750T PO (07:04)
[2017-01-08] MEDS ORDERED: ATEN25TA PO (07:04)
[2017-01-08 07:07] VITALS: BP 153/93; PULSE 57; RESP 17; TEMP 95.7; O2SAT 94
--- NOTE | 2017-01-08 07:07 | HHI.DS ---
Discharge Summary Admission Date Jan 03, 2017 at 05:04 Discharge Date: Jan 08, 2017 Admitting Diagnosis pneumonia/elevated liver enzymes (1) Pneumonia ICD Code: J18.9 Diagnosis: Principal (2) Sepsis ICD Code: A41.9 Diagnosis: Principal (3) Elevated liver enzymes ICD Code: R74.8 Diagnosis: Principal (4) HTN (hypertension) ICD Code: I10 Diagnosis: Secondary (5) DM (diabetes mellitus) ICD Code: E11.9 Diagnosis: Secondary (6) Bacteremia ICD Code: R78.81 Diagnosis: Secondary (7) Leukocytosis ICD Code: D72.829 Diagnosis: Secondary Procedures None Brief History - From Admission The patient is a 66-year-old male who presented to the emergency department with a 2 day history of abdominal pain, body aches, and chills. These progressively got worse yesterday. He reports subjective fever, but no chills or night sweats. Denies cough or dyspnea. Abdominal pain is in the midepigastric region. No nausea or vomiting. No diarrhea or constipation. CBC/BMP: 01/07/17 0450 01/07/17 0450 Significant Findings Laboratory Tests Test 01/07/17 04:50 Monocytes (%) (Auto) 10.3 % (0.0-8.0) Monocytes # (Auto) 1.0 TH/MM3 (0-0.9) Creatinine 1.31 MG/DL (0.60-1.30) Estimat Glomerular Filtration 67 ML/MIN (>89) Rate Random Glucose 171 MG/DL (74-106) Aspartate Amino Transf 65 U/L (15-37) (AST/SGOT) Alanine Aminotransferase 175 U/L (12-78) (ALT/SGPT) Alkaline Phosphatase 129 U/L (45-117) Albumin 3.0 GM/DL (3.4-5.0) Imaging Last Impressions Tumor Localization 01/05/17 0000 Signed Impressions: Service Date/Time: December 15:59 - CONCLUSION: 1. Probable right-sided dental disease. 2. Otherwise, unremarkable exam. Yao Pinto MD Gall Bladder Ultrasound 01/03/17 0228 Signed Impressions: Service Date/Time: Tuesday, January 03, 2017 02:51 - CONCLUSION: Fatty liver. Renzo Rivera MD Abdomen/Pelvis CT 01/03/17 0103 Signed Impressions: Service Date/Time: Tuesday, January 03, 2017 01:51 - CONCLUSION: 1. Prostatic enlargement with suspected very prominent compression on the bladder floor creating a masslike area in the bladder floor. 2. Fatty infiltration liver. 3. Nonobstructing left renal stone. 4. Bibasilar areas of consolidation or atelectasis at the lung bases Renzo Rivera MD Chest X-Ray 01/03/17 0018 Signed Impressions: Service Date/Time: Tuesday, January 03, 2017 00:34 - CONCLUSION: Expiratory chest x-ray with suspected borderline cardiomegaly. Renzo Rivera MD PE at Discharge GENERAL: 66 yo male, well nourished, well developed patient, in not acute distress. SKIN: Warm and dry. HEAD: Atraumatic. Normocephalic. EYES: Pupils equal and round. No scleral icterus. No injection or drainage. ENT: No nasal bleeding or discharge. Mucous membranes pink and moist. NECK: Trachea midline. No JVD. CARDIOVASCULAR: Regular rate and rhythm. RESPIRATORY: No accessory muscle use. Clear to auscultation. Breath sounds equal bilaterally. GASTROINTESTINAL: Abdomen soft, non-tender, nondistended. Hepatic and splenic margins not palpable. MUSCULOSKELETAL: Extremities without clubbing, cyanosis, or edema. No obvious deformities. NEUROLOGICAL: Awake and alert. No obvious cranial nerve deficits. Motor grossly within normal limits. Five out of 5 muscle strength in the arms and legs. Normal speech. PSYCHIATRIC: Appropriate mood and affect; insight and judgment normal. Pt update on day of discharge Feesl much better today/ No fever r chills. Feels comfortable to go home. No sob, no n/v/d/c. Eating better. Cleared by ID specialist for DC Hospital Course Abdominal pain: Uncertain etiology. Continue workup. Appreciate GI recommendations. Elevated transaminases: Patient denies alcohol use. Ultrasound shows fatty liver. Monitor labs. Hepatitis panel is negative. LFTs are trending down. Poss acute 2/2 sepsis. Sepsis secondary to pneumonia/also bacteremia: Patient with fever, tachycardia on admission. Suspected source is pneumonia. CT showed areas of consolidation versus atelectasis in the lung bases. Bacteremia: Blood culture growing GNR Klebsiella pneumoniae and Enterobacter species. Repeat Blood cultures 01/04/17 NTD. Monitor unril neg Blood cx. Continue antibiotics. Infectious disease specialist consulted and following. ID following appreciate recommendations. Patient went for RBC scan to evaluate for occult infection. 1. Probable right-sided dental disease. 2. Otherwise, unremarkable exam. Discussed with the patient and family ( daughter at bedside) to follow up with the dentist. Switch abx to PO levaquin per infectious disease specialist, to continue at discharge. Hypertension: Fairly controlled Continue atenolol, amlodipine. Monitor VS and adjust meds if need. Vasotec IV prn if high BP SERGEI. Continue IVF. Monitor Kidney indices. Avoid nephrotoxics. UA neg. Pt also has BPH. Diabetes mellitus type 2, controlled A1c 5.3 07/29. Monitor Accu-Cheks and cover with sliding scale insulin. Continue 70/30 insulin. Hold Janumet secondary to renal insufficiency. Continue Invokana, pioglitazone. BPH: Continue Flomax, Proscar. Follow up with Dr Power as OP. Has an appointment in February. DVT prophylaxis: Heparin. Discussed with patient, nurse, family Improved, cleared for DC by consultants. Patient was DC home in fairly good condition, to follow up as OP with PCP and consultants. Pt Condition on Discharge: Stable Discharge Disposition: Discharge Home Discharge Time: <= 30 minutes Discharge Instructions DIET: Follow Instructions for: Heart Healthy Diet Activities you can perform: Regular-No Restrictions Follow up Referrals: PCP Follow-up - 3-5 Days New Medications: Atenolol (Atenolol) 25 Mg Tab 25 MG PO DAILY Blood Pressure Management #30 TAB Levofloxacin (Levaquin) 750 Mg Tab 750 MG PO Q24H infection #14 TAB Continued Medications: Amlodipine (Norvasc) 10 Mg Tab 10 MG PO DAILY Blood Pressure Management #30 Ref 0 TAB Aspirin (Aspirin) 81 Mg Tabdr 81 MG PO DAILY TAB Canagliflozin (Invokana) 100 Mg Tab 100 MG PO DAILY Take before 1st meal of day. Blood Sugar Management #30 Ref 0 TAB Dicyclomine (Bentyl) 20 Mg Tab 20 MG PO TID Bowel Management Ref 0 TAB Finasteride (Proscar) 5 Mg Tab 5 MG PO HS Do not crush. Manage Prostate Problems #30 Ref 0 TAB Ibuprofen (Ibuprofen) 600 Mg Tab 600 MG PO DAILY PRN Pain/Inflammation #40 Ref 0 TAB Insulin Human Isophane-Regular 70-30 Inj (Novolin 70/30 Inj) 1,000 Units/10 Ml Inj 5 UNITS SQ BID Pioglitazone (Pioglitazone) 45 Mg Tab 45 MG PO DAILY Blood Sugar Management #30 Ref 0 TAB Sitagliptin-Metformin (Janumet) 50-1,000 Mg Tab 1 TAB PO DAILY Blood Sugar Management #60 Ref 0 TAB Tamsulosin (Flomax) 0.4 Mg Cap 0.4 MG PO HS Manage Prostate Problems #30 Ref 0 CAP Discontinued Medications: Atenolol (Atenolol) 50 Mg Tab 50 MG PO DAILY Blood Pressure Management #30 Ref 0 TAB Anastasiya Sellers MD Jan 08, 2017 07:07
[2017-01-08 07:32] VITALS: PULSE 53
[2017-01-08] MEDS: PIOGLITAZONE HCL 45 MG TAB PO SCH (09:22)
[2017-01-08] MEDS: PANTOPRAZOLE SOD 40 MG DELAYED RELEASE TAB PO SCH (09:22)
[2017-01-08] MEDS: DICYCLOMINE HCL 20 MG TAB PO SCH (09:23)
[2017-01-08] MEDS: HEPARIN SODIUM - SQ 10,000 UNITS/ML VIAL SQ SCH (09:23)
[2017-01-08] MEDS: ASPIRIN EC 81 MG TABEC PO SCH (09:23)
[2017-01-08] MEDS: ATENOLOL 25 MG TAB PO SCH (09:23)
[2017-01-08] MEDS: INSULIN HUMAN NPH/R 70/30 1,000 UNITS/10 ML VIAL SQ SCH (09:24)
[2017-01-08] MEDS: SODIUM CHLORIDE 0.9% FLUSH 5 ML FLUSH FLUSH SCH (09:31)
== END 2017-01-08 11:35 | disposition home or self-care (01) | DRG 871 ==
LOC: NEPE 23:35 → NEDA 01-03 05:04 → N06B 01-03 16:36
PROVIDERS: ADMIT Hospitalist; ATTEND Hospitalist
DX: A41.59 Other Gram-negative sepsis (principal); J18.9 Pneumonia, unspecified organism; N17.9 Acute kidney failure, unspecified; K76.0 Fatty (change of) liver, not elsewhere classified; R65.20 Severe sepsis without septic shock; I10 Essential (primary) hypertension; K21.9 Gastro-esophageal reflux disease without esophagitis; I25.10 Atherosclerotic heart disease of native coronary artery without angina pectoris; Z95.5 Presence of coronary angioplasty implant and graft; R74.8 Abnormal levels of other serum enzymes; N40.1 Benign prostatic hyperplasia with lower urinary tract symptoms; R33.8 Other retention of urine; R10.84 Generalized abdominal pain; E11.9 Type 2 diabetes mellitus without complications; Z79.4 Long term (current) use of insulin; N20.0 Calculus of kidney; K04.7 Periapical abscess without sinus
CPT/HCPCS: 71010; 74177; 76705; 78806; 80048; 80053; 80074; 80076; 80329; 81001; 82103; 82105; 82248; 82390; 82728; 82948; 83516; 83520; 83540; 83550; 83605; 83690; 83880; 85025; 86038; 86256; 87040; 87086; 87186; 87205; 87804; 93005; 96361; 96374; 96375; A9569; C9113; G0480; J0456; J0696; J0744; J1170; J1644; J1650; J1815; J2405; J2543; J7030; J7050; Q9967

== ENCOUNTER 2018-05-06 23:42 | Observation (INO) | payer MEDICARE, OTHER ==
[~2018-05-06] VITALS: Ht 172.7 cm; Wt 82.0 kg
[~2018-05-06 23:42] MED LIST changes: +ATEN25TA PO; -ATEN50TA PO; -AZIT250T3 PO; -FLUC100T2 PO; -LACTCHW3 CHEW; +LEVA750T PO; +N7030SS SQ; -PIOG45TA3 PO; +PIOG45TA5 PO
[2018-05-06 23:45] VITALS: BP 159/101; PULSE 86; RESP 18; TEMP 98.9; O2SAT 98
[2018-05-06 23:57] VITALS: BP 152/94; PULSE 82; RESP 20; TEMP 98.2; O2SAT 98
[2018-05-07] VITALS (9 sets, daily range): BP systolic 111–151; BP diastolic 71–90; PULSE 45–80; RESP 14–20; TEMP 97.5–98; O2SAT 95–99
[2018-05-07] MEDS ORDERED: SODIUM CHLORIDE 0.9% FLUSH 10 ML FLUSH IVF PRN
[2018-05-07] MEDS ORDERED: NITROGLYCERIN 0.4 MG SL 25 TABS/BTL SL ONE
[2018-05-07] MEDS ORDERED: NITROGLYCERIN 2% OINT 1 GM PACKET TOP ONE
[2018-05-07 00:25] LABS: BASOPHIL # 0.1 TH/MM3 (0-0.2); BASOPHIL % 0.9 % (0.0-2.0); EOSINOPHIL # 0.1 TH/MM3 (0-0.4); EOSINOPHIL % 1.3 % (0.0-4.0); HEMATOCRIT 43.5 % (39.0-51.0); HEMOGLOBIN 14.3 GM/DL (13.0-17.0); LYMPH % 29.7 % (9.0-44.0); MEAN CELL VOLUME 85.9 FL (80.0-100.0); MEAN CORPUSCULAR HEMOGLOBIN 28.2 PG (27.0-34.0); MEAN CORPUSCULAR HGB CONC 32.9 % (32.0-36.0); MEAN PLATELET VOLUME 10.6 FL (7.0-11.0); MONO % 9.3 % (0.0-8.0); MONOCYTE # 0.9 TH/MM3 (0-0.9); NEUT % 58.8 % (16.0-70.0); PLATELET COUNT 198 TH/MM3 (150-450); RED BLOOD COUNT 5.06 MIL/MM3 (4.50-5.90); WHITE BLOOD COUNT 10.2 TH/MM3 (4.0-11.0)
--- NOTE | 2018-05-07 00:27 | RADRPT ---
EXAM DATE: 05/07/2018 12:17 AM EDT AGE/SEX: 68 years / Male INDICATIONS: Chest pain. Vertigo. CLINICAL DATA: This is the patient's initial encounter. Patient reports that signs and symptoms have been present for 1 day and indicates a pain score of 4/10. MEDICAL/SURGICAL HISTORY: None. None. COMPARISON: No prior exams available for comparison. FINDINGS: PA and lateral views of the chest demonstrate the lungs to be symmetrically aerated without evidence of mass, infiltrate or effusion. The cardiomediastinal contours are unremarkable. Osseous structures are intact. Surgical clips are seen in the upper abdomen CONCLUSION: No acute cardiopulmonary process. Electronically signed by: Renzo Rivera MD 05/07/2018 12:26 AM EDT
[2018-05-07] MEDS ORDERED: ASPIRIN 81 MG CHEW TAB CHEW ONE (00:30)
[2018-05-07 00:37] LABS: PROTHROMBIN TIME - PATIENT 10.1 SEC (9.8-11.6)
[2018-05-07 00:38] LABS: ALT (GPT) 31 U/L (12-78)
[2018-05-07 00:44] LABS: ALBUMIN 4.2 GM/DL (3.4-5.0); ALKALINE PHOSPHATASE 145 U/L (45-117); AST (GOT) 35 U/L (15-37); BICARBONATE 26.3 MEQ/L (21.0-32.0); BLOOD UREA NITROGEN 27 MG/DL (7-18); CALCIUM 9.3 MG/DL (8.5-10.1); CHLORIDE 98 MEQ/L (98-107); CREATININE 1.56 MG/DL (0.60-1.30); GLOMERULAR FILTRATION RATE 54 ML/MIN (>89); GLUCOSE,RANDOM 249 MG/DL (74-106); MAGNESIUM 2.2 MG/DL (1.5-2.5); SODIUM (NA) 134 MEQ/L (136-145); TOTAL BILIRUBIN ADULT 0.8 MG/DL (0.2-1.0); TROPONIN I LESS THAN 0.02 NG/ML (0.02-0.05)
--- NOTE | 2018-05-07 00:50 | PD ---
HPI Chief Complaint: Chest Pain Time Seen by Provider: 23:56 Travel History International Travel<30 days: No Contact w/Intl Traveler<30days: No Traveled to known affect area: No History of Present Illness HPI The patient is a 68 year old male who presents to the [facility] emergency department with a history of reportedly not feeling well for the last 4 days. He reports that it began with bilateral leg pain below his knees that occurs with walking. He reports that his legs also feel like they are going to give out. He reports that he felt lightheaded. The patient reports that in the night yesterday he awoke from sound sleep with chest pain. The patient reports that the pain is in the center of his chest and radiates out bilaterally and also into his left shoulder and left arm. He reports having shortness of breath associated with this. He denies having any nausea or vomiting. He denies having any diaphoresis. He denies having any diarrhea. The patient reports that the pain is a tightening sensation. He reports that it comes and goes. He reports that the pain is worse with lying flat. He reports a prior history of myocardial infarction. He cannot recall when he last had a stress test done. He cannot recall the name of his spine surgeon. He reports that his primary care physician is Dr. Camilo. He denies taking aspirin daily. On review of systems otherwise, the patient denies having any known recent fevers, headache, neck pain, cough or congestion, abdominal pain, urinary symptoms, or neurologic symptoms. FOR[facility]LY [facility] Past Medical History Narrative Medical The patient's past medical history is significant for hypertension, history of TIA, acid reflux, benign prostatic hypertrophy, prior history of myocardial infarction reportedly in 1997, diabetes mellitus. Hx Anticoagulant Therapy: Yes (ASA) Arthritis: No Asthma: No Autoimmune Disease: No Blood Disorders: No Anxiety: No Depression: No Heart Rhythm Problems: No Cancer: No Cardiac Catheterization: Yes (02/2010) Cardiovascular Problems: Yes (HTN) High Cholesterol: Yes Chemotherapy: No Chest Pain: Yes Congestive Heart Failure: No COPD: No Cerebrovascular Accident: Yes (TIA X3) Diabetes: Yes Patient Takes Glucophage: No Diminished Hearing: No Endocrine: Yes Gastrointestinal Disorders: Yes (HEMMRHOIDS, ACID REFLEX) GERD: Yes Glaucoma: No Genitourinary: Yes (ENLARGED PROSTATE) Headaches: No Hepatitis: No Hiatal Hernia: No Hypertension: Yes Immune Disorder: No Implanted Vascular Access Dvce: No Kidney Stones: No Medical other: No Musculoskeletal: Yes (NECK PROBLEMS) Neurologic: Yes (HX OF 3 MINI STROKES -- 2007) Psychiatric: No Reproductive: No Respiratory: Yes Immunizations Current: Yes Migraines: No Myocardial Infarction: Yes (02/2010) Radiation Therapy: No Renal Failure: No Seizures: No Sleep Apnea: No Thyroid Disease: No Ulcer: No Tetanus Vaccination: > 5 Years Influenza Vaccination: Yes Past Surgical History Narrative Surgical The patient reports a prior history of cardiac catheterization, however he is unsure of whether he had stenting or angioplasty, history of cystoscopy, dental surgery. Abdominal Surgery: No AICD: No Appendectomy: No Arteriovenous Shunt: No Cardiac Surgery: Yes (HEART CATH STENT 2013) Cholecystectomy: No Ear Surgery: No Endocrine Surgery: No Eye Surgery: No Genitourinary Surgery: Yes (cystoscope) Gynecologic Surgery: No Insulin Pump: No Joint Replacement: No Neurologic Surgery: No Oral Surgery: Yes (DENTAL SURGERY IN S) Pacemaker: No Thoracic Surgery: No Other Surgery: Yes Social History Alcohol Use: No Tobacco Use: No Substance Use: No Allergies-Medications (Allergen,Severity, Reaction): Coded Allergies: shellfish derived (Unverified Allergy, Severe, Anaphylaxis, 05/06/18) Reported Meds & Prescriptions Reported Meds & Active Scripts Active Atenolol 25 Mg Tab 25 Mg PO DAILY Reported Novolin 70/30 Inj (Insulin Human Isoph/Insulin Regular) 1,000 Units/10 Ml Inj 5 Units SQ BID Flomax (Tamsulosin HCl) 0.4 Mg Cap 0.4 Mg PO HS Pioglitazone (Pioglitazone HCl) 45 Mg Tab 45 Mg PO DAILY Janumet (Sitagliptin-Metformin) 50-1,000 Mg Tab 1 Tab PO DAILY Proscar (Finasteride) 5 Mg Tab 5 Mg PO HS Do not crush. Invokana (Canagliflozin) 100 Mg Tab 100 Mg PO DAILY Take before 1st meal of day. Norvasc (Amlodipine Besylate) 10 Mg Tab 10 Mg PO DAILY Review of Systems Except as stated in HPI: all other systems reviewed are Neg General / Constitutional: No: Fever Eyes: No: Visual changes HENT: Positive: Lightheadedness, No: Headaches, Congestion, Neck Stiffness, Neck Pain Cardiovascular: Positive: Chest Pain or Discomfort Respiratory: Positive: Shortness of Breath, No: Cough Gastrointestinal: No: Nausea, Vomiting, Diarrhea, Abdominal Pain Genitourinary: No: Dysuria Musculoskeletal: Positive: Myalgias, Pain Skin: No Rash Neurologic: Positive: Weakness, No: Focal Abnormalities, Headache, Change in Mentation, Slurred Speech, Sensory Disturbance Psychiatric: No: Depression Endocrine: No: Polydipsia Hematologic/Lymphatic: No: Easy Bruising Physical Exam Narrative General: The patient is a well-developed well-nourished male in no acute distress. Head and Neck exam: Head is normocephalic atraumatic. Eyes: EOMI, pupils are equal round and reactive to light. Nose: Midline septum with pink mucous membranes Mouth: Dentition unremarkable. Moist mucus membranes. Posterior oropharynx is not erythematous. No tonsillar hypertrophy. Uvula midline. Airway patent. Neck: No palpable lymphadenopathy. No nuchal rigidity. No thyromegaly. Cardiovascular: Regular rate and rhythm without murmurs, gallops, or rubs. No pulse deficit to the extremities on simultaneous auscultation and palpation of his radial artery. Lungs: Clear to auscultation bilaterally. No wheezes, rhonchi, or rales. Abdomen: Soft, without tenderness to palpation in all 4 quadrants of the abdomen. No guarding, rebound, or rigidity. Normal bowel sounds are audible. No tenderness on palpation of McBurney's point. Negative Nam sign Extremities: No clubbing, cyanosis, or edema. 2+ pulses in all 4 extremities. No calf tenderness on palpation. Back: No spinous process tenderness to palpation. No costovertebral angle tenderness to palpation. Neurologic Exam: Cranial nerves 2-12 were intact on exam. Strength is 5/5 in all 4 extremities. No sensory deficits noted. Skin Exam: No rash noted. Intact skin that is warm and dry. Data Data Last Documented VS Vital Signs Date Time Temp Pulse Resp B/P (MAP) Pulse Ox O2 Delivery O2 Flow Rate FiO2 05/07/18 00:02 Room Air 05/07/18 00:02 20 05/07/18 00:00 80 98 05/06/18 23:57 98.2 Orders Orders Electrocardiogram (05/06/18 23:59) B-Type Natriuretic Peptide (05/06/18 23:59) Ckmb (Isoenzyme) Profile (05/06/18 23:59) Complete Blood Count With Diff (05/06/18 23:59) Comprehensive Metabolic Panel (05/06/18 23:59) Magnesium (Mg) (05/06/18 23:59) Prothrombin Time / Inr (Pt) (05/06/18 23:59) Act Partial Throm Time (Ptt) (05/06/18 23:59) Troponin I (05/06/18 23:59) Lipase (05/06/18 23:59) Ecg Monitoring (05/06/18:59) Bilateral Bp Monitoring (05/06/18 23:59) Iv Access Insert/Monitor (05/06/18:59) Oximetry (05/06/18 23:59) Oxygen Administration (05/06/18 23:59) Nitroglycerin 2% Oint (Nitroglycerin 2% (05/07/18 00:00) Sodium Chloride 0.9% Flush (Ns Flush) (05/07/18 00:00) Nitroglycerin Sl (Nitrostat Sl) (05/07/18 00:00) Chest, Pa & Lat (05/06/18 23:59) Aspirin Chew (Aspirin Chew) (05/07/18 00:30) CKMB (05/07/18 00:05) CKMB% (05/07/18 00:05) Activity Bed Rest With Brp (05/07/18 02:30) Vital Signs (Adult) Q4H (05/07/18 02:30) Cardiac Rhythm .As Directed (05/07/18 02:30) Notify Dr: Other .PRN (05/07/18 02:30) Notify Dr. Parameters (05/07/18 02:30) Resp Oxygen Nasal Cannula (05/07/18 ) Diet Npo (05/07/18 Breakfast) Ckmb (Isoenzyme) Profile (05/07/18 03:05) Ckmb (Isoenzyme) Profile (05/07/18 06:05) Troponin I (05/07/18 03:05) Troponin I (05/07/18 06:05) Electrocardiogram (05/07/18 03:05) Electrocardiogram (05/07/18 06:05) ^ Obtain (05/07/18 02:30) Sodium Chlor 0.9% 1000 Ml Inj (Ns 1000 M (05/07/18 02:30) Sodium Chloride 0.9% Flush (Ns Flush) (05/07/18 02:30) Sodium Chloride 0.9% Flush (Ns Flush) (05/07/18 09:00) Acetaminophen (Tylenol) (05/07/18 02:30) Famotidine (Pepcid) (05/07/18 09:00) Admissions Dean / Telemetry [place].Q8H (05/07/18 02:30) Admit Order (Ed Use Only) (05/07/18 02:32) CKMB (05/07/18 03:22) CKMB% (05/07/18 03:22) Labs Laboratory Tests Test 05/07/18 00:05 White Blood Count 10.2 TH/MM3 Red Blood Count 5.06 MIL/MM3 Hemoglobin 14.3 GM/DL Hematocrit 43.5 % Mean Corpuscular Volume 85.9 FL Mean Corpuscular Hemoglobin 28.2 PG Mean Corpuscular Hemoglobin Concent 32.9 % Red Cell Distribution Width 13.0 % Platelet Count 198 TH/MM3 Mean Platelet Volume 10.6 FL Neutrophils (%) (Auto) 58.8 % Lymphocytes (%) (Auto) 29.7 % Monocytes (%) (Auto) 9.3 % Eosinophils (%) (Auto) 1.3 % Basophils (%) (Auto) 0.9 % Neutrophils # (Auto) 6.0 TH/MM3 Lymphocytes # (Auto) 3.0 TH/MM3 Monocytes # (Auto) 0.9 TH/MM3 Eosinophils # (Auto) 0.1 TH/MM3 Basophils # (Auto) 0.1 TH/MM3 CBC Comment DIFF FINAL Differential Comment Prothrombin Time 10.1 SEC Prothromb Time International Ratio 1.0 RATIO Activated Partial Thromboplast Time 25.0 SEC Blood Urea Nitrogen 27 MG/DL Creatinine 1.56 MG/DL Random Glucose 249 MG/DL Total Protein 9.0 GM/DL Albumin 4.2 GM/DL Calcium Level 9.3 MG/DL Magnesium Level 2.2 MG/DL Alkaline Phosphatase 145 U/L Aspartate Amino Transf (AST/SGOT) 35 U/L Alanine Aminotransferase (ALT/SGPT) 31 U/L Total Bilirubin 0.8 MG/DL Sodium Level 134 MEQ/L Potassium Level 4.2 MEQ/L Chloride Level 98 MEQ/L Carbon Dioxide Level 26.3 MEQ/L Anion Gap 10 MEQ/L Estimat Glomerular Filtration Rate 54 ML/MIN Total Creatine Kinase 145 U/L Creatine Kinase MB 0.8 NG/ML Troponin I LESS THAN 0.02 NG/ML B-Type Natriuretic Peptide 3 PG/ML Lipase 126 U/L MDM Medical Decision Making Medical Screen Exam Complete: Yes Emergency Medical Condition: Yes Medical Record Reviewed: Yes Differential Diagnosis Acute coronary syndrome, versus aortic dissection, versus pulmonary embolism, versus Narrative Course During the course of the patient's emergency department visit, the patient's history, examination, and differential diagnosis were reviewed with the patient. The patient was placed on a environmental monitoring specialist with oximetry and frequent blood pressure monitoring. The patient had IV access obtained and blood work sent for analysis. An EKG was done on arrival. The patient's EKG reveals a sinus rhythm heart rate of 83, QRS duration is 111 ms, QTC is [address] segment elevation is noted. T waves are inverted in V1. The patient was initially provided aspirin 324 mg p.o. 1, nitroglycerin sublingual 1, nitroglycerin 1 inch to the chest wall. The patient's laboratory studies were reviewed and remarkable for 05/07/18 00:05 Total Protein 9.0 H, Albumin 4.2, Calcium Level 9.3, Magnesium Level 2.2, Alkaline Phosphatase 145 H, Aspartate Amino Transf (AST/SGOT) 35, Alanine Aminotransferase (ALT/SGPT) 31, Total Bilirubin 0.8, initial set of cardiac enzymes are negative. Lipase is within normal limits. Radiology studies were reviewed and remarkable for Last Impressions Chest X-Ray 05/06/18 [id number] Signed Impressions: CONCLUSION: No acute cardiopulmonary process. The patient will be admitted to the chest pain center for rule out serial cardiac enzyme protocol followed by consideration of stress testing. The patient's results were discussed with the patient, including the plan of care. I explained that further testing and/ or monitoring is indicated based on the patient's history, examination, and/ or laboratory findings. Therefore, I recommended admission for additional evaluation. The patient expressed understanding and was agreeable with this plan. The patient was admitted to the hospital in stable condition and sent to a bed under the care of the chest pain center. Diagnosis Primary Impression: Chest pain, rule out acute myocardial infarction Admitting Information Admitting Physician Requests: Angle Osborn MD May 07, 2018 00:50
[2018-05-07] MEDS ORDERED: ACETAMINOPHEN 500 MG CPLT PO PRN (02:30)
[2018-05-07] MEDS ORDERED: SODIUM CHLORIDE 0.9% FLUSH 10 ML FLUSH IV FLUSH PRN (02:30)
[2018-05-07] MEDS ORDERED: SODIUM CHLOR 0.9% 1000 ML INJ 1,000 ML IV SCH (02:30)
[2018-05-07 04:11] LABS: TROPONIN I LESS THAN 0.02 NG/ML (0.02-0.05)
[2018-05-07 07:31] LABS: TROPONIN I LESS THAN 0.02 NG/ML (0.02-0.05)
--- NOTE | 2018-05-07 07:40 | HHI.HP ---
[facility] Primary Care Physician Renzo Camilo MD Chief Complaint Chest pain and weakness History of Present Illness 68-year-old male with history of type 2 diabetes and hypertension presents emergency room for further evaluation chest pain and weakness. Chest pain onset Reid morning. Location substernal. Characterized as sharp and dull achy pain. Radiation to left shoulder and left anterior chest. Laying on left side makes pain worse. Laying flat makes pain better. Movement of left arm makes pain worse. Hurts to take a deep breath. Duration constant, waxing and waning in intensity but denies discomfort ever completely resolving. No nausea, vomiting, dyspnea, or diaphoresis. Reports similar pain in the past when he had a " slight OK." x2 cardiac catheterization reports indicate mild coronary artery disease. Unsure events over reported OK in 1997. Continues to have chest discomfort as stated above. In regards to weakness, onset 3-4 days. Upon standing becomes dizzy and feels like this bilateral lower legs will "give out. " Has been "taking it easy" due to reported symptoms and tried to "hide" symptoms from his daughter. Last evening, while shopping, he required "pushing the buggy" for bilateral leg weakness. No falling, back pain, LOC, fever, recent illness, saddle anesthesia, or similar episodes of bilateral leg weakness or dizziness. Denies any recent change in medications. States normal diabetes well controlled but over the weekend glucose reported to be elevated at 304, which in unusual for him. Review of Systems General: No fatigue, fever, chills, recent illness, or change in appetite. Other than as stated above his general state of health. HEENT: No GRACE, no vision changes, no nasal congestion or drainage, no dysphasia CV: Continues to have chest pain as stated above. No palpitations. RESP: No SOB, cough, wheeze, recent respiratory infection, or history of COPD or asthma. GI: No nausea, vomiting, bowel changes, diarrhea, constipation, pain, distention , melena, or blood in the stool. No unintentional weight gain or weight loss. : No dysuria, urgency, frequency. Known BPH. EXT: No lower leg edema. Bilateral lower extremities "slight tingling, " No numbness. No past history of diabetic neuropathy. MS: As stated above. No recent injury or change in ROM. History of cervical radiculopathy. NEURO: No current dizziness. Dizziness mostly occurs with position changes and/ or walking. Made worse when looking "straight up, straight down, or when I tired my head fast." No change in memory, LOC, or motor/sensory deficits PSYCH: No anxiety, depression, or suicidal ideation SKIN: No rashes, no concerning lesions Past Family Social History Allergies: Coded Allergies: shellfish derived (Unverified Allergy, Severe, Anaphylaxis, 05/06/18) Past Medical History Type 2 diabetes, hypertension, GERD, BPH Past Surgical History Dental surgery Reported Medications Reported Meds & Active Scripts Active (Patient poor historian. Discussed with both patient and daughter, both unsure if patient ever or currently taking a statin or MADELIN inhibitor) Atenolol 25 Mg Tab 25 Mg PO DAILY Novolin 70/30 Inj (Insulin Human Isoph/Insulin Regular) 1,000 Units/10 Ml Inj 5 Units SQ BID Flomax (Tamsulosin HCl) 0.4 Mg Cap 0.4 Mg PO HS Pioglitazone (Pioglitazone HCl) 45 Mg Tab 45 Mg PO DAILY Janumet (Sitagliptin-Metformin) 50-1,000 Mg Tab 1 Tab PO DAILY Proscar (Finasteride) 5 Mg Tab 5 Mg PO HS Do not crush. Invokana (Canagliflozin) 100 Mg Tab 100 Mg PO DAILY Take before 1st meal of day. Norvasc (Amlodipine Besylate) 10 Mg Tab 10 Mg PO DAILY Active Ordered Medications Current Medications Medications (Trade) Dose Ordered Sig/Caitlin Route Start Time Stop Time Status Last Admin (NS Flush) 2 ml UNSCH PRN IVF 05/07/18 00:00 05/07/18 00:47 Sodium Chloride 1,000 ml @ 100 mls/hr Q10H IV 05/07/18 02:30 05/07/18 05:11 (NS Flush) 2 ml UNSCH PRN IV FLUSH 05/07/18 02:30 (NS Flush) 2 ml BID IV FLUSH 05/07/18 09:00 (Tylenol) 500 mg Q4H PRN PO 05/07/18 02:30 (Pepcid) 20 mg BID PO 05/07/18 09:00 Social History No known coronary artery disease or hyperlipidemia. Known type 2 diabetes and hypertension. Denies smoking history. . Retired. Reports normally being quite active. Past cardiac testing 03/27/15 Cardiac catheterization (Dr. Cabrera) Conclusions- Mild nonobstructive coronary artery disease. Normal left sided filling. 03/16/15 Lexiscan-mild redistribution and lateral wall. Global hypokinesis. EF 46% 03/15/10 Cardiac catheterization (Dr. Miranda) Conclusions-normal ventricular function with mild coronary artery disease. Physical Exam Vital Signs Vital Signs Date Time Temp Pulse Resp B/P (MAP) Pulse Ox O2 Delivery O2 Flow Rate FiO2 05/07/18 07:20 95 21 05/07/18 04:08 97.6 61 16 111/72 (85) 97 05/07/18 03:38 20 05/07/18 02:52 98 05/07/18 00:02 Room Air 05/07/18 00:02 20 05/07/18 00:00 80 20 151/90 (110) 98 Room Air 150/88 (108) 05/06/18 23:57 98.2 82 20 152/94 (113) 98 Room Air 05/06/18 23:45 98.9 86 18 159/101 (120) 98 Physical Exam GENERAL: Alert WN, WD, NAD, pleasant, -[place] male HEAD: NC, AT EYES: Sclera clear, conjunctiva without injection ENT: Mucous membranes pink and moist CV: RRR, without murmur, rub, gallop, no JVD, S1-S2 no S3-S4. Chest wall discomfort reproduced with palpation. RESP: Clear lungs throughout bilateral, no crackles, wheeze, rhonchi, symmetrical chest rise, nonlabored, able to speak in full sentences ABD: Soft, NT, ND, no masses, positive bowel tones EXT: Pulses +2x4, no dependent edema, discolored and dry anteriorly bilateral lower extremities MS: Normal tone x4 extremities, no obvious deformities, full range of motion NEURO: CN II through CN XII grossly intact, motor strength 5/5 PSYCH: A+O x3, pleasant affect, appropriate speech, appropriate mood, questionable insight and judgment (turns to daughter for many answers to questions) SKIN: Normal turgor, normal texture, brisk cap refill, decreased hair distribution bilateral lower extremities. Laboratory Laboratory Tests Test 05/07/18 00:05 05/07/18 03:22 05/07/18 06:28 White Blood Count 10.2 Red Blood Count 5.06 Hemoglobin 14.3 Hematocrit 43.5 Mean Corpuscular Volume 85.9 Mean Corpuscular Hemoglobin 28.2 Mean Corpuscular Hemoglobin Concent 32.9 Red Cell Distribution Width 13.0 Platelet Count 198 Mean Platelet Volume 10.6 Neutrophils (%) (Auto) 58.8 Lymphocytes (%) (Auto) 29.7 Monocytes (%) (Auto) 9.3 Eosinophils (%) (Auto) 1.3 Basophils (%) (Auto) 0.9 Neutrophils # (Auto) 6.0 Lymphocytes # (Auto) 3.0 Monocytes # (Auto) 0.9 Eosinophils # (Auto) 0.1 Basophils # (Auto) 0.1 CBC Comment DIFF FINAL Differential Comment Prothrombin Time 10.1 Prothromb Time International Ratio 1.0 Activated Partial Thromboplast Time 25.0 Blood Urea Nitrogen 27 Creatinine 1.56 Random Glucose 249 Total Protein 9.0 Albumin 4.2 Calcium Level 9.3 Magnesium Level 2.2 Alkaline Phosphatase 145 Aspartate Amino Transf (AST/SGOT) 35 Alanine Aminotransferase (ALT/SGPT) 31 Total Bilirubin 0.8 Sodium Level 134 Potassium Level 4.2 Chloride Level 98 Carbon Dioxide Level 26.3 Anion Gap 10 Estimat Glomerular Filtration Rate 54 Total Creatine Kinase 145 102 151 Creatine Kinase MB 0.8 0.6 Troponin I LESS THAN 0.02 LESS THAN 0.02 LESS THAN 0.02 B-Type Natriuretic Peptide 3 Lipase 126 Result Diagram: 05/07/18 0005 05/07/18 0005 Imaging Last 48 hours Impressions Chest X-Ray 05/06/18 1180 Signed Impressions: CONCLUSION: No acute cardiopulmonary process. Course EKG NSR, normal axis, no st t segment change Caprini VTE Risk Assessment Caprini VTE Risk Assessment: Mod/High Risk (score >= 2) Caprini Risk Assessment Model Point Value = 1 Point Value = 2 Point Value = 3 Point Value = 5 Age 41-60 Minor surgery BMI > 25 kg/m2 Swollen legs Varicose veins or History of unexplained or recurrent spontaneous Oral contraceptives or hormone replacement Sepsis (< 1 month) Serious lung disease, including pneumonia (< 1 month) Abnormal pulmonary function Acute myocardial infarction Congestive heart failure (< 1 month) History of inflammatory bowel disease Medical patient at bed rest Age 61-74 Arthroscopic surgery Major open surgery (> 45 min) Laparoscopic surgery (> 45 min) Malignancy Confined to bed (> 72 hours) Immobilizing plaster cast Central venous access Age >= 75 History of VTE Family history of VTE Factor V Leiden Prothrombin [id number] Lupus anticoagulant Anticardiolipin antibodies Elevated serum homocysteine Heparin-induced thrombocytopenia Other congenital or acquired thrombophilia Stroke (< 1 month) Elective arthroplasty Hip, pelvis, or leg fracture Acute spinal cord injury (< 1 month) Prophylaxis Regimen Total Risk Factor Score Risk Level Prophylaxis Regimen 0-1 Low Early ambulation 2 Moderate Order ONE of the following: *Sequential Compression Device (SCD) *Heparin 5000 units SQ BID 3-4 Higher Order ONE of the following medications: *Heparin 5000 units SQ TID *Enoxaparin/Lovenox 40 mg SQ daily (WT < 150 kg, CrCl > 30 mL/min) *Enoxaparin/Lovenox 30 mg SQ daily (WT < 150 kg, CrCl > 10-29 mL/min) *Enoxaparin/Lovenox 30 mg SQ BID (WT < 150 kg, CrCl > 30 mL/min) AND/OR *Sequential Compression Device (SCD) 5 or more Highest Order ONE of the following medications: *Heparin 5000 units SQ TID (Preferred with Epidurals) *Enoxaparin/Lovenox 40 mg SQ daily (WT < 150 kg, CrCl > 30 mL/min) *Enoxaparin/Lovenox 30 mg SQ daily (WT < 150 kg, CrCl > 10-29 mL/min) *Enoxaparin/Lovenox 30 mg SQ BID (WT < 150 kg, CrCl > 30 mL/min) AND *Sequential Compression Device (SCD) Assessment and Plan Problem List: (1) Atypical chest pain ICD Codes: R07.89 - Other chest pain Status: Acute Plan: ACS ruled out with 3 sets of EKG and cardiac enzymes. Seen and evaluated by Dr. Tyrone Ham. Initial plan to complete exercise cardiac exam. On further discussion with patient and bilateral leg weakness, cardiac testing changed to lexiscan. Discomfort unlikely cardiac in nature due to prolonged discomfort and mild CAD via cardiac catheterization in 2014. Discomfort appears to be muscle skeletal chest wall pain. Multiple risks factors including hypertension, diabetes, age, and hyperlipidemia. Upon further review of medical records patient was started on statin therapy in 2009. Encouraged him to discuss with his primary care provider restarting statin therapy, if he is not currently taking. Educated both patient and patient's daughter on benefit of statin therapy with history of type 2 diabetes. Made aware of lipid panel results in 2009. Follows closely with his PCP. Suspect he is currently taking a statin drug and he forgets the name of drug, or either he quit taking medication for an unknown reason. (2) Weakness of both legs ICD Codes: R29.898 - Other symptoms and signs involving the musculoskeletal system Status: Acute Plan: No acute findings on exam or laboratory studies. Discussed possible neuropathy. Unclear how long symptoms have been occurring. Discussed with RN. Patient ambulated irving independently, walking slowly. Encouraged upon discharge following up with his PCP. (3) Renal insufficiency ICD Codes: N28.9 - Disorder of kidney and ureter, unspecified Status: Chronic Plan: Follow with PCP. Patient and his daughter denies ever being told he has abnormal renal function. Suspect this not to be the case as medical record indicates mild to moderate renal insufficiency since 2009. Unclear if taking an MADELIN inhibitor. Encouraged him to discuss with his PCP if an MADELIN inhibitor is beneficial in his case. Both he and his daughter verbalized understanding. Will also add to discharge instructions. (4) DM (diabetes mellitus) ICD Codes: E11.9 - Type 2 diabetes mellitus without complications Status: Chronic Plan: Hold oral anti-glycemics until after cardiac testing. SSI moderate dose coverage in interim. HGa1c medical record reviewed and it appears his diabetes is generally well controlled. Hga1c on 05/11/11-11.9%, decreased to 5.4% on . Follow up with PCP upon discharge. Random glucose on admission was 249. Problem Qualifiers (1) DM (diabetes mellitus): Qualified Codes: E11.8 - Type 2 diabetes mellitus with unspecified complications Eli Arias May 07, 2018 07:40
[2018-05-07] MEDS ORDERED: SODIUM CHLORIDE 0.9% FLUSH 10 ML FLUSH IV FLUSH SCH (09:00)
[2018-05-07] MEDS ORDERED: FAMOTIDINE 20 MG TAB PO SCH (09:00)
[2018-05-07] MEDS ORDERED: GLUCAGON 1 MG/ML VIAL OTHER PRN (09:00)
[2018-05-07] MEDS ORDERED: DEXTROSE 50% IN WATER 50 ML VIAL(D50) IV PUSH PRN (09:00)
[2018-05-07] MEDS ORDERED: REGADENOSON INJ 0.4 MG/5 ML SYR ONE (11:17)
[2018-05-07] MEDS ORDERED: INSULIN ASPART SUPPLEMENTAL SCALE SQ SCH (12:00)
--- NOTE | 2018-05-07 12:25 | RADRPT ---
EXAM DATE: 05/07/2018 12:06 PM EDT AGE/SEX: 68 years / Male INDICATIONS:Angina. Myocardial infarction Mid chest pain with shortness of breath for one day. CLINICAL DATA: This is the patient's initial encounter. Patient reports that signs and symptoms have been present for 1 day and indicates a pain score of 6/10. MEDICAL/SURGICAL HISTORY: Diabetes mellitus type II. Hypertension. Stroke. Coronary artery st ent. COMPARISON: No prior exams available for comparison. No external comparison. DOSE: 8.1 mCi Tc 99m Myoview at rest 26.8 mCi [id number] at stress 0.4 mg Lexiscan STRESS SYMPTOMS: Short of breath. EJECTION FRACTION: 47 % TECHNIQUE: The patient underwent pharmacologic stress with infusion of prescribed dose. Continuous ECG tracing was monitored during stress. Gated SPECT imaging was performed after stress and conventi onal SPECT imaging was performed at rest. The examination was performed on a SPECT/CT scanner, both attenuation and non-corrected datasets were reviewed. FINDINGS: Distribution: The maximum perfused segment at stress is in the septal and lateral wall. Perfusion Study: The pattern of perfusion at stress is within normal limits. Gated Study: There are intact wall motion and wall thickening with mild hypokinesis. The ejection fr action is calculated at 47%. RISK CATEGORY: Intermediate (1-3 % Annual Mortality Rate) CONCLUSION: 1. Mild global hypokinesis with ejection fraction 47%. 2. No definite reversibility to suggest ischemia. Electronically signed by: Neal Snider MD 05/07/2018 12:23 PM EDT
--- NOTE | 2018-05-07 13:07 | HHI.DCPOC ---
Discharge Care Plan Diagnosis: (1) DM (diabetes mellitus) (2) Atypical chest pain (3) Weakness of both legs Goals to Promote Your Health * To prevent worsening of your condition and complications * To maintain your health at the optimal level Directions to Meet Your Goals Take your medications as prescribed Follow your dietary instruction Follow activity as directed Keep your appointments as scheduled Take your immunizations and boosters as scheduled If your symptoms worsen call your PCP, if no PCP go to Urgent Care Center or Emergency Room Smoking is Dangerous to Your Health. Avoid second hand smoke Call the 24-hour hour crisis hotline for domestic abuse at Eli Arias May 07, 2018 13:07
--- NOTE | 2018-05-07 13:12 | HHI.DS ---
Discharge Summary Admission Date May 07, 2018 at 02:33 Discharge Date: May 07, 2018 Admitting Diagnosis cp r/o ACS Brief History 68-year-old male with history of type 2 diabetes and hypertension presents emergency room for further evaluation chest pain 4 days and bilateral lower leg extremity weakness with accompanying dizziness. Admitted chest pain center. Ruled out with recent EKGs and cardiac enzymes. Seen and evaluated by Dr. Tyrone Ham. Lexiscan completed essentially unremarkable with known global hypokinesis and reduced EF. Discussed with patient discussing with PCP starting on a statin and MADELIN inhibitor, unclear is patient is taking. RN reports patient walking unit, with cane, without any difficulties. Discharged home with follow up with PCP. CBC/BMP: 05/07/18 0005 05/07/18 0005 Significant Findings Laboratory Tests Test 05/07/18 00:05 05/07/18 03:22 05/07/18 06:28 Monocytes (%) (Auto) 9.3 % (0.0-8.0) Blood Urea Nitrogen 27 MG/DL (7-18) Creatinine 1.56 MG/DL (0.60-1.30) Random Glucose 249 MG/DL (74-106) Total Protein 9.0 GM/DL (6.4-8.2) Alkaline Phosphatase 145 U/L (45-117) Sodium Level 134 MEQ/L (136-145) Estimat Glomerular Filtration Rate 54 ML/MIN (>89) Troponin I LESS THAN 0.02 NG/ML LESS THAN 0.02 NG/ML LESS THAN 0.02 NG/ML Creatine Kinase MB LESS THAN 0.5 NG/ML Pt Condition on Discharge: Good Discharge Disposition: Discharge Home Discharge Instructions DIET: Follow Instructions for: Heart Healthy Diet, Diabetic Diet Activities you can perform: Regular-No Restrictions Eli Arias May 07, 2018 13:12
--- NOTE | 2018-05-08 16:40 | EKG ---
Date Performed: 05/07/2018 Time Performed: 06:22:16 PTAGE: 68 years EKG: SINUS BRADYCARDIA INFERIOR MYOCARDIAL INFARCTION ABNORMAL ECG PREVIOUS TRACING : 05/07/2018 03.18 Since previous tracing, no significant change noted DOCTOR: Tyrone Ham Interpretating Date/Time 05/08/2018 16:40:33
--- NOTE | 2018-05-08 16:41 | EKG ---
Date Performed: 05/07/2018 Time Performed: 03:18:43 PTAGE: 68 years EKG: Sinus rhythm MODERATE INTRAVENTRICULAR CONDUCTION DELAY BORDERLINE ECG PREVIOUS TRACING : 05/06/2018 23.56 Since previous tracing, no significant change noted DOCTOR: Tyrone Ham Interpretating Date/Time 05/08/2018 16:40:43
--- NOTE | 2018-05-08 16:41 | EKG ---
Date Performed: 05/06/2018 Time Performed: 23:56:59 PTAGE: 68 years EKG: Sinus rhythm INFERIOR MYOCARDIAL INFARCTION ABNORMAL ECG PREVIOUS TRACING : 01/03/2017 00.31 Since previous tracing, no significant change noted DOCTOR: Tyrone Ham Interpretating Date/Time 05/08/2018 16:41:20
--- NOTE | 2018-05-08 16:46 | TR ---
Date Performed: 05/07/2018 Time Performed: 11:16:48 DOCTOR: Tyrone Ham DRUG LIST: CLINICAL HISTORY: REASON FOR TEST: REASON FOR ENDING: OBSERVATION: CONCLUSION: COMMENTS: Lexiscan stress test was performed under standard four minute protocol. Radionuclide was injected one minute prior to ending the test. No electrocardiographic abormalities were present t o suggest ischemia. Nuclear imaging and interpretation are pending.
== END 2018-05-07 14:30 | disposition home or self-care (01) ==
LOC: NEPC 23:42 → NEDA 05-07 02:33 → NEPFCDU 05-07 03:49
PROVIDERS: ADMIT Internal Medicine Interventional Cardiology; ATTEND Internal Medicine Interventional Cardiology
DX: R07.9 Chest pain, unspecified (principal); M79.604 Pain in right leg; M79.605 Pain in left leg; R42 Dizziness and giddiness; R06.02 Shortness of breath; I25.2 Old myocardial infarction; Z86.73 Personal history of transient ischemic attack (TIA), and cerebral infarction without residual deficits; N40.0 Benign prostatic hyperplasia without lower urinary tract symptoms; K21.9 Gastro-esophageal reflux disease without esophagitis; I10 Essential (primary) hypertension; E11.9 Type 2 diabetes mellitus without complications; Z79.01 Long term (current) use of anticoagulants; E78.00 Pure hypercholesterolemia, unspecified; Z79.4 Long term (current) use of insulin; Z79.899 Other long term (current) drug therapy; R53.1 Weakness; I25.10 Atherosclerotic heart disease of native coronary artery without angina pectoris; R29.898 Other symptoms and signs involving the musculoskeletal system; N28.9 Disorder of kidney and ureter, unspecified; R94.31 Abnormal electrocardiogram [ECG] [EKG]
CPT/HCPCS: 71046; 78452; 80053; 82550; 82552; 82948; 83690; 83735; 83880; 84484; 85025; 85610; 85730; 93005; 93017; 96360; 96361; 96372; 99285; A9502; G0378; J1815; J2785; J7030